=== PATIENT | female | born 1950 | race Caucasian/White ===

== ENCOUNTER 2018-03-01 10:32 | Emergency (ER) | payer OTHER, MEDICARE, BC ==
[2018-03-01 10:52] VITALS: BP 169/68
[2018-03-01] MEDS ORDERED: Ondansetron 4 MG Tab.DIS PO ONE (11:40)
[2018-03-01] MEDS ORDERED: Acetaminophen 325 MG Tab PO ONE (11:40)
--- NOTE | 2018-03-01 11:42 | EDM.PDOC ---
ED HPI GENERAL MEDICAL PROBLEM - General Chief Complaint: Head Injury Stated Complaint: HEAD INJURY/DIZZY Time Seen by Provider: 03/01/18 11:29 Source of Information: Reports: Patient History Limitations: Reports: No Limitations - History of Present Illness INITIAL COMMENTS - FREE TEXT/NARRATIVE: Patient is 67-year-old female presents ED complaining of right-sided head pain and some mild dizziness. Patient states at work a 3 pound piece of plywood fell on the patient's right side of her head from a short distance. Approximately 12 inches. This was located on a cart she was restocking from. It was the flat portion of the plywood that hit her on the head. 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 Since then she's had a headache localized to the right side of her head. She's had episodes of dizziness with standing also complains of some mild nausea. She denies any midline cervical neck pain, vision changes, weakness or numbness or tingling to extremities, difficulty walking, back pain, CP, SOB, or any additional complaints. Right Head Pain Score (Numeric/FACES): 5 - Related Data Allergies Allergy/AdvReac Type Severity Reaction Status Date / Time lacquer Allergy Anaphylactic Uncoded 03/01/18 10:46 Shock Home Meds: Home Meds Levothyroxine [Synthroid] 50 mcg PO DAILY 11/02/14 [History] Aspirin [Ecotrin] 325 mg PO DAILY #30 tab.ec 08/29/15 [Rx] Metoprolol Succinate [Toprol XL] 25 mg PO DAILY 03/01/18 [History] Past Medical History Cardiovascular History: Reports: Hypertension Endocrine/Metabolic History: Reports: Hypothyroidism - Past Surgical History HEENT Surgical History: Reports: Tonsillectomy GI Surgical History: Reports: Other (See Below) Other GI Surgeries/Procedures: lapraoscopy Female Surgical History: Reports: Hysterectomy Social & Family History - Tobacco Use Smoking Status *Q: Never Smoker Second Hand Smoke Exposure: Yes - Caffeine Use Caffeine Use: Reports: Coffee, Soda, Tea - Alcohol Use Days Per Week of Alcohol Use: 0 - Recreational Drug Use Recreational Drug Use: No ED ROS GENERAL - Review of Systems Review Of Systems: ROS reveals no pertinent complaints other than HPI. ED EXAM, HEAD INJURY - Physical Exam Exam: See Below Exam Limited By: No Limitations General Appearance: Alert, WD/WN, No Apparent Distress Head: Scalp Swelling, Scalp Hematoma, Scalp Tenderness, Other (Small hematoma to the right side of the head with increasing pain with palpation. No bruising, abrasion, bony abnormalities present.). No: Scalp Lacerations, Scalp Abrasions , Scalp Ecchymosis, Stein's Sign, Facial Abrasions, Facial Ecchymosis, Facial Lacerations, Facial Swelling, Sinus Tenderness, Facial Tenderness, Raccoon Eyes Nexus Criteria: No: Posterior, Midline Cervical Tenderness, Evidence of Intoxication, Altered Level of Consciousness, Focal Neurological Deficit, Painful Distraction Injuries Eyes: Bilateral Eye: EOMI, Nystagmus Ears: Normal External Exam, Normal Canal, Hearing Grossly Normal, Normal TMs Nose: Normal Inspection Throat/Mouth: Normal Inspection, Normal Oropharynx, Normal Voice, No Airway Compromise. No: Uvular Deviation Neck: Non-Tender, Full Range of Motion, Normal Alignment, Normal Inspection, Tenderness (Minimal discomfort on the right lateral aspect of the neck with palpation. No decreased range of motion noted.). No: Muscle Spasm, Paraspinous Muscle Tender, Spinous Processes Tender, Stiff Neck, Tender Midline Respiratory: No Respiratory Distress, Lungs Clear, Normal Breath Sounds, No Accessory Muscle Use, Chest Non-Tender Cardiovascular: Normal Peripheral Pulses, Regular Rate, Rhythm Back Exam: Normal Inspection. No: Paraspinal Tenderness, Vertebral Tenderness Extremities: Normal Inspection, Non-Tender Neurologic: pretzel packer II-XII nml As Tested, No Motor/Sensory Deficits, Alert, Normal Mood/Affect, Oriented x 3, Other (Cerebellar function intact: Finger to nose, rapid alternating movements, and [id number]. No weakness discrepancy as to the upper and lower extremity is.) Skin: Normal Color, Warm/Dry Course - Vital Signs Last Recorded V/S: Last Vital Signs Temp 98.0 F 03/01/18 10:48 Pulse 65 03/01/18 10:48 Resp 16 03/01/18 10:48 BP 169/68 H 03/01/18 10:48 Pulse Ox 98 03/01/18 10:48 - Orders/Labs/Meds Orders: Active Orders 24 hr Category Date Time Status EKG 12 Lead [EKG Documentation Completion] [RC] STAT Care 03/01/18 11:41 Active Meds: Medications Discontinued Medications Generic Name Dose Route Start Last Admin Trade Name Freq PRN Reason Stop Dose Admin Acetaminophen 650 mg 03/01/18 11:40 03/01/18 11:54 Tylenol PO 03/01/18 11:41 650 mg NOW ONE Administration Ondansetron HCl 4 mg 03/01/18 11:40 03/01/18 11:54 Zofran Odt PO 03/01/18 11:41 4 mg ONETIME ONE Administration - Re-Assessments/Exams Free Text/Narrative Re-Assessment/Exam: Ordered CT of the head and also EKG. Head CT did not reveal any acute findings. Final interpretation is pending. Reviewed with Dr. Choudhary. EKG sinus rhythm at rate of [address] changes noted. Patient received Tylenol and Zofran with improvements to symptoms. 03/01/18 13:18 CT the head impression: Mild senescent change. No acute findings noted. Will discharge patient home with instructions as documented. Departure - Departure Time of Disposition: 13:18 Disposition: Home, Self-Care 01 Condition: Good Clinical Impression: Concussion with no loss of consciousness Contusion of head Qualifiers: Encounter type: initial encounter Contusion of head detail: scalp Qualified Code(s): S00.03XA - Contusion of scalp, initial encounter - Discharge Information Instructions: Head Injury, Adult, Post-Concussion Syndrome, [id number], Contusion, [id number], Hematoma, [id number] Referrals: Venkat Mariee MD [Primary Care Provider] - Forms: ED Department Discharge, ED Return to Work/School Form Additional Instructions: Please follow instructions for concussion. Monitor for any new or worsening symptoms. May utilize Tylenol and/or ibuprofen in alternating fashion for discomfort. Push the fluids. Ensure adequate rest. Follow-up with PCP in up this week for reevaluation as needed. Return to the ED if you develop any new or worsening symptoms. - My Orders Last 24 Hours: My Active Orders 03/01/18 11:41 EKG 12 Lead [EKG Documentation Completion] [RC] STAT - Assessment/Plan Last 24 Hours: My Active Orders 03/01/18 11:41 EKG 12 Lead [EKG Documentation Completion] [RC] STAT
--- NOTE | 2018-03-01 13:04 | CT ---
Head CT Technique: Multiple axial sections through the brain were obtained. Intravenous contrast was not utilized. Comparison: No previous intracranial imaging is available. Findings: Ventricles along with basal cisterns and sulci over the convexities are mildly prominent. 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 Minimal diminished density is noted within portions of the periventricular and subcortical white matter which is compatible with small vessel ischemic demyelination change. No evidence of intracranial hemorrhage. No midline shift or mass effect is seen. Bone window settings were reviewed which shows no acute calvarial abnormality. Visualized sinuses are clear. Mild atherosclerotic calcification is seen within the carotid siphon. Impression: 1. Mild senescent change. No acute intracranial abnormality is identified. Diagnostic code #2
== END 2018-03-01 13:30 | disposition home or self-care (01) ==
LOC: JD.ED 10:32
DX: S06.0X0A Concussion without loss of consciousness, initial encounter (principal); I10 Essential (primary) hypertension; E03.9 Hypothyroidism, unspecified; Y99.0 Civilian activity done for income or pay; W20.8XXA Other cause of strike by thrown, projected or falling object, initial encounter; Z79.82 Long term (current) use of aspirin; Z79.899 Other long term (current) drug therapy; Z88.8 Allergy status to other drugs, medicaments and biological substances
CPT/HCPCS: 70450; 93005; 99284; A9270; 99283

== ENCOUNTER 2019-01-25 14:00 | Emergency (ER) | payer BC, MEDICARE ==
[2019-01-25] MEDS ORDERED: Ketorolac 30 MG/ML SDV IM ONE (15:04)
--- NOTE | 2019-01-25 15:08 | CR ---
Chest: Two views of the chest were obtained. Comparison: Prior chest x-ray of 08/28/15. Heart size is normal. Tortuous thoracic aorta is seen. Lungs are clear with no acute parenchymal change. Minimal degenerative spurring is scattered within the spine. Impression: 1. Nothing acute is seen on two-view chest x-ray. Diagnostic code #2
[2019-01-25 15:53] VITALS: BP 140/67
--- NOTE | 2019-01-25 16:00 | EDM.PDOC ---
ED HPI GENERAL MEDICAL PROBLEM - General Chief Complaint: Chest Pain Stated Complaint: CHEST PAIN FROM CHEST TO RIGHT ARM/HIGH BLOOD PRES Time Seen by Provider: 01/25/19 14:27 Source of Information: Reports: Patient, RN Notes Reviewed History Limitations: Reports: No Limitations - History of Present Illness INITIAL COMMENTS - FREE TEXT/NARRATIVE: Patient is a 68 year old female who presents to the ED for the evaluation of right shoulder pain with radiation to her left chest. She states that she tried to go to the walk-in clinic but they deferred her to the ED for evaluation. Patient states that she woke up this morning and had pain in her right shoulder. Over the subsequent attending. She states that she was not nauseous in the a.m., but did have some nausea this afternoon. She states that moving the arm in any way aggravates this pain. The patient states that she also aggravates this when she takes a deep breath. She states that she's never felt this type of pain before. He notes that she has a dry cough normally. She notes this pain to be sharp, stabbing, pressure-like and constant in nature. 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 She states that she does not have a history of anxiety nor is she is smoker. He states that her mother had some valve issues with her heart and grandmother had a heart attack. She states that she does not have nausea vomiting or diarrhea at this time, but does have some slight shortness of breath with episodes plus chest pain. Right Upper Posterior Back Pain Score (Numeric/FACES): 7 - Related Data Allergies Allergy/AdvReac Type Severity Reaction Status Date / Time lacquer Allergy Anaphylactic Uncoded 03/01/18 10:46 Shock Home Meds: Home Meds Levothyroxine [Synthroid] 50 mcg PO DAILY 11/02/14 [History] Aspirin [Ecotrin] 325 mg PO DAILY #30 tab.ec 08/29/15 [Rx] Metoprolol Succinate [Toprol XL] 25 mg PO DAILY 03/01/18 [History] Past Medical History HEENT History: Reports: Impaired Vision Cardiovascular History: Reports: Hypertension Endocrine/Metabolic History: Reports: Hypothyroidism - Past Surgical History HEENT Surgical History: Reports: Tonsillectomy GI Surgical History: Reports: Other (See Below) Other GI Surgeries/Procedures: lapraoscopy Female Surgical History: Reports: Hysterectomy Social & Family History - Tobacco Use Smoking Status *Q: Never Smoker - Caffeine Use Caffeine Use: Reports: Coffee - Recreational Drug Use Recreational Drug Use: No Review of Systems - Review of Systems Review Of Systems: See Below Constitutional: Denies: Chills, Fever Eyes: Reports: No Symptoms Ears: Reports: No Symptoms Nose: Reports: No Symptoms Mouth/Throat: Reports: No Symptoms Respiratory: Reports: Shortness of Breath, Cough. Denies: Wheezing, Sputum Cardiovascular: Reports: Chest Pain. Denies: Edema GI/Abdominal: Reports: No Symptoms Genitourinary: Reports: No Symptoms Musculoskeletal: Reports: Shoulder Pain (right shoulder/blade), Joint Pain ( right shoulder blade). Denies: Neck Pain, Hand Pain Skin: Reports: No Symptoms Neurological: Reports: No Symptoms Psychiatric: Reports: No Symptoms ED EXAM, GENERAL - Physical Exam Exam: See Below Exam Limited By: No Limitations General Appearance: Alert, WD/WN, No Apparent Distress Ears: Normal External Exam Nose: Normal Inspection Throat/Mouth: Normal Inspection, Normal Oropharynx, No Airway Compromise Head: Atraumatic, Normocephalic Neck: Normal Inspection Respiratory/Chest: No Respiratory Distress, Lungs Clear, Normal Breath Sounds, No Accessory Muscle Use, Chest Non-Tender Cardiovascular: Normal Peripheral Pulses, Regular Rate, Rhythm, No Murmur GI/Abdominal: Normal Bowel Sounds, Soft, Non-Tender, No Distention Back Exam: Normal Inspection Extremities: Normal Inspection, Normal Range of Motion (pt has normal ROM, but pain in mid back, around rib head 3-4.), Normal Capillary Refill. No: Joint Swelling, Arm Pain Neurological: Alert, Oriented, Normal Cognition, No Motor/Sensory Deficits Psychiatric: Normal Affect, Normal Mood Skin Exam: Warm, Dry, Intact, Normal Color, No Rash EKG INTERPRETATION EKG Date: 01/25/19 Time: 14:07 Rhythm: NSR Rate (Beats/Min): 72 [place]: Normal P-Wave: Present QRS: Normal ST-T: Normal QT: Normal EKG Interpretation Comments: Reviewed with Dr. Li Course - Vital Signs Last Recorded V/S: Last Vital Signs Temp 98.2 F 01/25/19 14:10 Pulse 68 01/25/19 15:52 Resp 18 01/25/19 15:52 BP 140/67 01/25/19 15:52 Pulse Ox 97 01/25/19 15:52 - Orders/Labs/Meds Orders: Active Orders 24 hr Category Date Time Status EKG Documentation Completion [RC] STAT Care 01/25/19 14:29 Active Labs: Laboratory Tests 01/25/19 01/25/19 01/25/19 Range/Units 14:43 14:43 14:43 WBC 4.84 (3.98-10.04) K/mm3 RBC 4.01 (3.98-5.22) M/mm3 Hgb 12.2 (11.2-15.7) gm/L Hct 37.4 (34.1-44.9) % MCV 93.3 (79.4-94.8) fl MCH 30.4 (25.6-32.2) pg MCHC 32.6 (32.2-35.5) g/dl RDW Std Deviation 42.9 (36.4-46.3) fL Plt Count 195 (182-369) K/mm3 MPV 9.7 (9.4-12.3) fl Neutrophils % (Manual) 76 H (40-60) % Band Neutrophils % 0 (0-10) % Lymphocytes % (Manual) 19 L (20-40) % Atypical Lymphs % 0 % Monocytes % (Manual) 4 (2-10) % Eosinophils % (Manual) 1 (0.7-5.8) % Basophils % (Manual) 0 L (0.1-1.2) Platelet Estimate Adequate RBC Morph Comment Normal PT 10.5 (9.5-12.1) SECONDS INR 0.96 APTT 27 (24-31) SECONDS D-Dimer, Quantitative 0.79 H (0.19-0.50) mg/L Sodium 140 (136-145) mEq/L Potassium 4.0 (3.5-5.1) mEq/L Chloride 103 (98-107) mEq/L Carbon Dioxide 30 (21-32) mEq/L Anion Gap 11.0 (5-15) BUN 22 H (7-18) mg/dL Creatinine 1.2 H (0.55-1.02) mg/dL Est Cr Clr Drug Dosing 34.50 mL/min Estimated GFR (MDRD) 44 (>60) mL/min BUN/Creatinine Ratio 18.3 H (14-18) Glucose 102 (80-115) mg/dL Calcium 9.3 (8.5-10.1) mg/dL Total Bilirubin 0.3 (0.2-1.0) mg/dL AST 17 (15-37) U/L ALT 24 (14-59) U/L Alkaline Phosphatase 87 (46-116) U/L Troponin I < 0.017 (0.00-0.056) ng/mL NT-Pro-B Natriuret Pep (0-125) pg/mL Total Protein 7.5 (6.4-8.2) g/dl Albumin 3.8 (3.4-5.0) g/dl Globulin 3.7 gm/dL Albumin/Globulin Ratio 1.0 (1-2) 01/25/19 Range/Units 14:43 WBC (3.98-10.04) K/mm3 RBC (3.98-5.22) M/mm3 Hgb (11.2-15.7) gm/L Hct (34.1-44.9) % MCV (79.4-94.8) fl MCH (25.6-32.2) pg MCHC (32.2-35.5) g/dl RDW Std Deviation (36.4-46.3) fL Plt Count (182-369) K/mm3 MPV (9.4-12.3) fl Neutrophils % (Manual) (40-60) % Band Neutrophils % (0-10) % Lymphocytes % (Manual) (20-40) % Atypical Lymphs % % Monocytes % (Manual) (2-10) % Eosinophils % (Manual) (0.7-5.8) % Basophils % (Manual) (0.1-1.2) Platelet Estimate RBC Morph Comment PT (9.5-12.1) SECONDS INR APTT (24-31) SECONDS D-Dimer, Quantitative (0.19-0.50) mg/L Sodium (136-145) mEq/L Potassium (3.5-5.1) mEq/L Chloride (98-107) mEq/L Carbon Dioxide (21-32) mEq/L Anion Gap (5-15) BUN (7-18) mg/dL Creatinine (0.55-1.02) mg/dL Est Cr Clr Drug Dosing mL/min Estimated GFR (MDRD) (>60) mL/min BUN/Creatinine Ratio (14-18) Glucose (80-115) mg/dL Calcium (8.5-10.1) mg/dL Total Bilirubin (0.2-1.0) mg/dL AST (15-37) U/L ALT (14-59) U/L Alkaline Phosphatase (46-116) U/L Troponin I (0.00-0.056) ng/mL NT-Pro-B Natriuret Pep 87 (0-125) pg/mL Total Protein (6.4-8.2) g/dl Albumin (3.4-5.0) g/dl Globulin gm/dL Albumin/Globulin Ratio (1-2) Meds: Medications Discontinued Medications Generic Name Dose Route Start Last Admin Trade Name Jose PRN Reason Stop Dose Admin Ketorolac Tromethamine 30 mg 01/25/19 15:04 01/25/19 15:49 Toradol IM 01/25/19 15:05 30 mg ONETIME ONE Administration - Re-Assessments/Exams Free Text/Narrative Re-Assessment/Exam: 01/25/19 14:45 Patient presents to the ED for right shoulder pain that radiates to the left chest. I did order cardiac workup to include CBC, CMP, troponin, d-dimer, PT/ PTT/INR and BNP. I am suspicious that her pain is musculoskeletal in nature and may be she did not sublux a rib head. He did order 30 mg IM Toradol for pain relief to see if this does help. I did briefly explain management of rib head pain relief to her as well. 01/25/19 16:11 Patient's labs have returned and are essentially within normal limits, however her d-dimer was elevated at 0.79. This was discussed with Dr. Li and it is felt to be age-related and non-worrisome at this time. Patient will be discharged home with general recommendations for musculoskeletal pain. Departure - Departure Time of Disposition: 16:12 Disposition: Home, Self-Care 01 Condition: Fair Clinical Impression: Right shoulder pain Qualifiers: Chronicity: acute Qualified Code(s): M25.511 - Pain in right shoulder - Discharge Information *PRESCRIPTION DRUG MONITORING PROGRAM REVIEWED*: No *COPY OF PRESCRIPTION DRUG MONITORING REPORT IN PATIENT EARLINE: No Instructions: Cryotherapy, [id number]-[id number], Nonspecific Chest Pain, [id number] Referrals: PCP,None [Ordering Only Provider] - Forms: ED Department Discharge Additional Instructions: You have then evaluated in the ED today for your right shoulder pain. Your workup in the ER today did not demonstrate any acute cardiac abnormalities. Your pain is likely musculoskeletal in nature, recommend that you seek chiropractic treatment to see if this doesn't provide some pain relief. You may take 500 mg Tylenol / 600 mg ibuprofen every 6 as needed for general pain relief. If you should develop increased shortness of breath, tachycardia, or a worsening cough, this would be cause for concern and you should return for re- evaluation. Please return to the ED if her symptoms change or worsen. - My Orders Last 24 Hours: My Active Orders 01/25/19 14:29 EKG Documentation Completion [RC] STAT - Assessment/Plan Last 24 Hours: My Active Orders 01/25/19 14:29 EKG Documentation Completion [RC] STAT
== END 2019-01-25 16:30 | disposition home or self-care (01) ==
LOC: JD.ED 14:00
DX: M25.511 Pain in right shoulder (principal); M54.6 Pain in thoracic spine; I10 Essential (primary) hypertension; E03.9 Hypothyroidism, unspecified; Z98.890 Other specified postprocedural states; Z79.82 Long term (current) use of aspirin; Z79.899 Other long term (current) drug therapy; Z90.710 Acquired absence of both cervix and uterus; Z88.8 Allergy status to other drugs, medicaments and biological substances
CPT/HCPCS: 36415; 71046; 80053; 83880; 84484; 85007; 85027; 85379; 85610; 85730; 93005; 96372; 99285; J1885; 93010; 99284

== ENCOUNTER 2019-05-09 11:42 | Emergency (ER) | payer MEDICARE, BC ==
[2019-05-09 11:56] VITALS: BP 175/70
[2019-05-09] MEDS: Sodium Chloride 0.9% 10 ML Syringe FLUSH PRN ×2 (12:10→14:55)
--- NOTE | 2019-05-09 12:45 | CT ---
Head CT Technique: Multiple axial sections through the brain were obtained. Intravenous contrast was not utilized. Comparison: Prior head CT study of . Findings: Ventricles along with basal cisterns and sulci over the convexities are mildly prominent. Very minimal areas of diminished density noted within the periventricular and subcortical white matter compatible with minimal small vessel ischemic demyelination change. Old lacunar infarcts are seen within the basal ganglia. No other abnormal parenchymal densities are seen. No evidence of intracranial hemorrhage. No midline shift or mass effect is seen. Bone window settings were reviewed which show atherosclerotic calcification within the carotid siphon. Visualized sinuses are clear. No acute calvarial abnormality is seen. Impression: 1. Mild senescent change. Nothing acute is appreciated on noncontrast head CT exam. Diagnostic code #2
[2019-05-09] MEDS ORDERED: Prochlorperazine 10 MG/2 ML SDV IVPUSH ONE (14:32)
[2019-05-09] MEDS ORDERED: diphenhydrAMINE 50 MG/ML SDV IVPUSH ONE (14:32)
[2019-05-09] MEDS ORDERED: Ketorolac 30 MG/ML SDV IVPUSH ONE (14:32)
[2019-05-09] MEDS ORDERED: Iohexol 350 MG/ML 75 ML Bottle IVPUSH ONE (14:37)
[2019-05-09] MEDS ORDERED: Sodium Chloride 0.9% 10 ML Syringe FLUSH ONE (14:37)
[2019-05-09] MEDS ORDERED: Sodium Chloride 0.9% 100 ML IV SCH (14:45)
--- NOTE | 2019-05-09 15:34 | CT ---
CT angiogram of brain Technique: Multiple axial sections of the brain were obtained. Intravenous contrast was utilized. Intravenous contrast given during the arterial phase. Findings: Right vertebral artery is dominant over the left side. Both vertebral arteries are patent into the basilar artery. Posterior cerebral arteries are patent. No occlusion or definite stenosis is seen. Distal internal carotid arteries are patent. Middle cerebral arteries and anterior cerebral arteries are patent. No focal stenosis or occlusion is seen. No discrete aneurysm is identified. Impression: 1. No abnormality is identified on CT angiogram study of the brain. Diagnostic code #1
--- NOTE | 2019-05-09 15:47 | EDM.PDOC ---
ED HPI GENERAL MEDICAL PROBLEM - General Chief Complaint: Neuro Symptoms/Deficits Stated Complaint: DIZZY FEELS LIKE SHE IS GOING TO PASS OUT Time Seen by Provider: 05/09/19 11:53 Source of Information: Reports: Patient, Family History Limitations: Reports: No Limitations - History of Present Illness INITIAL COMMENTS - FREE TEXT/NARRATIVE: The patient presents with dizziness. This all started at 10am. Her last time known well was 10am. She says she is off balance and at times it feels like she is going to pass out. She has a headache. She has some nausea but no vomiting. She has no fever, chills, cough, ear pain, tinnitus, chest pain, shortness of breath, abdominal pain, diarrhea or dysuria. She also has some numbness in her face. She was at the [employer] when this started. She has never had this happen before. Onset: Sudden Duration: Hour(s): (10am) Severity: Moderate Improves with: Reports: None Worsens with: Reports: None Associated Symptoms: Reports: Headaches, Nausea/Vomiting. Denies: Chest Pain, Cough, Fever/Chills, Shortness of Breath Headache Pain Score (Numeric/FACES): 5 - Related Data Allergies Allergy/AdvReac Type Severity Reaction Status Date / Time lacquer Allergy Anaphylactic Uncoded 03/01/18 10:46 Shock Home Meds: Home Meds Levothyroxine [Synthroid] 50 mcg PO ACBREAKFAST 05/09/19 [History] Lisinopril/Hydrochlorothiazide [Lisinopril-Hctz 20-12.5 mg Tab] 1 tab PO BID 09/17 [History] Meclizine [Antivert] 25 mg PO Q6H PRN #30 tab 05/09/19 [Rx] Past Medical History HEENT History: Reports: Impaired Vision Cardiovascular History: Reports: Hypertension Endocrine/Metabolic History: Reports: Hypothyroidism - Past Surgical History HEENT Surgical History: Reports: Tonsillectomy GI Surgical History: Reports: Other (See Below) Other GI Surgeries/Procedures: lapraoscopy Female Surgical History: Reports: Hysterectomy Social & Family History - Tobacco Use Smoking Status *Q: Never Smoker Second Hand Smoke Exposure: No - Caffeine Use Caffeine Use: Reports: Coffee ED ROS GENERAL - Review of Systems Review Of Systems: See Below Constitutional: Reports: No Symptoms HEENT: Reports: No Symptoms Respiratory: Reports: No Symptoms Cardiovascular: Reports: No Symptoms Endocrine: Reports: No Symptoms GI/Abdominal: Reports: Nausea. Denies: Abdominal Pain, Vomiting : Reports: No Symptoms Musculoskeletal: Reports: No Symptoms Skin: Reports: No Symptoms Neurological: Reports: Dizziness, Headache ED EXAM, NEURO - Physical Exam Exam: See Below Exam Limited By: No Limitations General Appearance: Alert, No Apparent Distress Ears: Normal External Exam Nose: Normal Inspection Throat/Mouth: Normal Inspection Head Exam: Atraumatic, Normocephalic Neck: Normal Inspection, Supple, Non-Tender Respiratory/Chest: No Respiratory Distress, Lungs Clear, Normal Breath Sounds Cardiovascular: Regular Rate, Rhythm, No Edema, No Murmur GI/Abdominal: Soft, Non-Tender, No Organomegaly, No Mass Neurological: Alert, No Motor/Sensory Deficits, Oriented x 3 EKG INTERPRETATION EKG Date: 05/09/19 Time: 12:03 Rhythm: NSR Rate (Beats/Min): 67 [place]: Normal P-Wave: Present QRS: Normal ST-T: Normal QT: Normal Course - Vital Signs Last Recorded V/S: Last Vital Signs Temp 98.0 F 05/09/19 11:53 Pulse 71 05/09/19 11:53 Resp 20 05/09/19 11:53 BP 175/70 H 05/09/19 11:53 Pulse Ox 100 05/09/19 11:53 - Orders/Labs/Meds Orders: Active Orders 24 hr Category Date Time Status Cardiac Monitoring [RC] . DIRECTED Care 05/09/19 11:57 Active EKG Documentation Completion [RC] STAT Care 05/09/19 11:58 Active Peripheral IV Care [RC] . DIRECTED Care 05/09/19 11:58 Active Sodium Chloride 0.9% [Normal Saline] 100 ml Med 05/09/19 14:45 Active IV ASDIRECTED Sodium Chloride 0.9% [Saline Flush] Med 05/09/19 11:57 Active 10 ml FLUSH ASDIRECTED PRN Peripheral IV Insertion Adult [OM.PC] Stat Oth 05/09/19 11:57 Ordered Medication Orders Sodium Chloride (Normal Saline) 100 mls @ 60 mls/hr IV ASDIRECTED PRIMITIVO Last Admin: 05/09/19 14:55 Dose: 60 mls/hr Sodium Chloride (Saline Flush) 10 ml FLUSH ASDIRECTED PRN PRN Reason: Keep Vein Open Last Admin: 05/09/19 14:55 Dose: 10 ml Admin: 05/09/19 12:10 Dose: 10 ml Labs: Laboratory Tests 05/09/19 05/09/19 05/09/19 Range/Units 11:56 12:05 12:05 WBC 3.45 L (3.98-10.04) K/mm3 RBC 4.07 (3.98-5.22) M/mm3 Hgb 12.4 (11.2-15.7) gm/L Hct 37.6 (34.1-44.9) % MCV 92.4 (79.4-94.8) fl MCH 30.5 (25.6-32.2) pg MCHC 33.0 (32.2-35.5) g/dl RDW Std Deviation 40.6 (36.4-46.3) fL Plt Count 163 L (182-369) K/mm3 MPV 9.7 (9.4-12.3) fl Neut % (Auto) 55.6 (34.0-71.1) % Lymph % (Auto) 29.0 (19.3-51.7) % Starr % (Auto) 10.4 (4.7-12.5) % Eos % (Auto) 3.5 (0.7-5.8) Baso % (Auto) 1.2 (0.1-1.2) % Neut # (Auto) 1.92 (1.56-6.13) K/mm3 Lymph # (Auto) 1.00 L (1.18-3.74) K/mm3 Starr # (Auto) 0.36 (0.24-0.36) K/mm3 Eos # (Auto) 0.12 (0.04-0.36) K/mm3 Baso # (Auto) 0.04 (0.01-0.08) K/mm3 PT 10.2 (9.5-12.1) SECONDS INR 0.93 APTT 27 (24-31) SECONDS Sodium (136-145) mEq/L Potassium (3.5-5.1) mEq/L Chloride (98-107) mEq/L Carbon Dioxide (21-32) mEq/L Anion Gap (5-15) BUN (7-18) mg/dL Creatinine (0.55-1.02) mg/dL Est Cr Clr Drug Dosing Estimated GFR (MDRD) (>60) mL/min BUN/Creatinine Ratio (14-18) Glucose (80-115) mg/dL POC Glucose 160 H (80-115) mg/dL Calcium (8.5-10.1) mg/dL Total Bilirubin (0.2-1.0) mg/dL AST (15-37) U/L ALT (14-59) U/L Alkaline Phosphatase (46-116) U/L Troponin I (0.00-0.056) ng/mL Total Protein (6.4-8.2) g/dl Albumin (3.4-5.0) g/dl Globulin gm/dL Albumin/Globulin Ratio (1-2) 05/09/19 Range/Units 12:05 WBC (3.98-10.04) K/mm3 RBC (3.98-5.22) M/mm3 Hgb (11.2-15.7) gm/L Hct (34.1-44.9) % MCV (79.4-94.8) fl MCH (25.6-32.2) pg MCHC (32.2-35.5) g/dl RDW Std Deviation (36.4-46.3) fL Plt Count (182-369) K/mm3 MPV (9.4-12.3) fl Neut % (Auto) (34.0-71.1) % Lymph % (Auto) (19.3-51.7) % Starr % (Auto) (4.7-12.5) % Eos % (Auto) (0.7-5.8) Baso % (Auto) (0.1-1.2) % Neut # (Auto) (1.56-6.13) K/mm3 Lymph # (Auto) (1.18-3.74) K/mm3 Starr # (Auto) (0.24-0.36) K/mm3 Eos # (Auto) (0.04-0.36) K/mm3 Baso # (Auto) (0.01-0.08) K/mm3 PT (9.5-12.1) SECONDS INR APTT (24-31) SECONDS Sodium 140 (136-145) mEq/L Potassium 4.0 (3.5-5.1) mEq/L Chloride 103 (98-107) mEq/L Carbon Dioxide 28 (21-32) mEq/L Anion Gap 13.0 (5-15) BUN 25 H (7-18) mg/dL Creatinine 1.0 (0.55-1.02) mg/dL Est Cr Clr Drug Dosing TNP Estimated GFR (MDRD) 55 (>60) mL/min BUN/Creatinine Ratio 25.0 H (14-18) Glucose 158 H (80-115) mg/dL POC Glucose (80-115) mg/dL Calcium 9.0 (8.5-10.1) mg/dL Total Bilirubin 0.4 (0.2-1.0) mg/dL AST 22 (15-37) U/L ALT 33 (14-59) U/L Alkaline Phosphatase 88 (46-116) U/L Troponin I < 0.017 (0.00-0.056) ng/mL Total Protein 7.3 (6.4-8.2) g/dl Albumin 3.9 (3.4-5.0) g/dl Globulin 3.4 gm/dL Albumin/Globulin Ratio 1.2 (1-2) Meds: Medications Generic Name Dose Route Start Last Admin Trade Name Freq PRN Reason Stop Dose Admin Sodium Chloride 100 mls @ 60 mls/hr 05/09/19 14:45 05/09/19 14:55 Normal Saline IV 60 mls/hr ASDIRECTED PRIMITIVO Administration Sodium Chloride 10 ml 05/09/19 11:57 05/09/19 14:55 Saline Flush FLUSH 10 ml ASDIRECTED PRN Administration Keep Vein Open Discontinued Medications Generic Name Dose Route Start Last Admin Trade Name Freq PRN Reason Stop Dose Admin Diphenhydramine HCl 50 mg 05/09/19 14:32 05/09/19 15:06 Benadryl IVPUSH 05/09/19 14:33 50 mg ONETIME ONE Administration Iohexol 75 ml 05/09/19 14:37 05/09/19 14:54 Omnipaque IVPUSH 05/09/19 14:38 75 ml ONETIME ONE Administration Ketorolac Tromethamine 30 mg 05/09/19 14:32 05/09/19 15:05 Toradol IVPUSH 05/09/19 14:33 30 mg ONETIME ONE Administration Prochlorperazine Edisylate 10 mg 05/09/19 14:32 05/09/19 15:07 Compazine IVPUSH 05/09/19 14:33 10 mg ONETIME ONE Administration Sodium Chloride 10 ml 05/09/19 14:37 05/09/19 15:08 Saline Flush FLUSH 05/09/19 14:38 10 ml ONETIME ONE Administration - Re-Assessments/Exams Free Text/Narrative Re-Assessment/Exam: 05/09/19 15:43 A stroke alert was called. Her last time known well was 10am. I ordered an IV saline lock, CT of her head, EKG and labs. Her EKG shows a NSR with no acute changes. Her CT shows nothing acute. Her WBC was a little low at 3.45. Her PT and PTT look good. Her glucose was 160 at the bed side and 158 in her labs. Her troponin is negative. I ordered a CT of her head and it was negative. I ordered toradol 30mg IV, compazine 10mg IV, and benadryl 50mg IV. She has vertigo. I will get her on some antivert. Departure - Departure Time of Disposition: 15:50 Disposition: Home, Self-Care 01 Condition: Good Clinical Impression: Vertigo - Discharge Information *PRESCRIPTION DRUG MONITORING PROGRAM REVIEWED*: No *COPY OF PRESCRIPTION DRUG MONITORING REPORT IN PATIENT EARLINE: No Prescriptions: Meclizine [Antivert] 25 mg PO Q6H PRN #30 tab PRN Reason: Dizziness Referrals: Venkat Mariee MD [Primary Care Provider] - Additional Instructions: Go home and rest. Drink plenty of fluids. Take the antivert every 6 hours as needed for dizziness. Please return if you are worse. - My Orders Last 24 Hours: My Active Orders 05/09/19 11:57 Cardiac Monitoring [RC] . DIRECTED Sodium Chloride 0.9% [Saline Flush] 10 ml FLUSH ASDIRECTED PRN Peripheral IV Insertion Adult [OM.PC] Stat 05/09/19 11:58 EKG Documentation Completion [RC] STAT Peripheral IV Care [RC] . DIRECTED 05/09/19 14:45 Sodium Chloride 0.9% [Normal Saline] 100 ml IV ASDIRECTED - Assessment/Plan Last 24 Hours: My Active Orders 05/09/19 11:57 Cardiac Monitoring [RC] . DIRECTED Sodium Chloride 0.9% [Saline Flush] 10 ml FLUSH ASDIRECTED PRN Peripheral IV Insertion Adult [OM.PC] Stat 05/09/19 11:58 EKG Documentation Completion [RC] STAT Peripheral IV Care [RC] . DIRECTED 05/09/19 14:45 Sodium Chloride 0.9% [Normal Saline] 100 ml IV ASDIRECTED
== END 2019-05-09 16:05 | disposition home or self-care (01) ==
LOC: JD.ED 11:42
DX: R42 Dizziness and giddiness (principal); I10 Essential (primary) hypertension; E03.9 Hypothyroidism, unspecified; Z79.899 Other long term (current) drug therapy; Z88.8 Allergy status to other drugs, medicaments and biological substances
CPT/HCPCS: 36415; 70450; 70496; 80053; 82962; 84484; 85025; 85610; 85730; 93005; 96374; 96375; 99284; J0780; J1200; J1885; J7030; Q9967

== ENCOUNTER 2019-11-02 05:03 | Emergency (ER) | payer MEDICARE, BC ==
[2019-11-02] MEDS ORDERED: Ondansetron 4 MG/2 ML SDV IVPUSH ONE (05:36)
[2019-11-02] MEDS ORDERED: Sodium Chloride 0.9% 1,000 ML IV SCH (05:45)
--- NOTE | 2019-11-02 05:45 | EDM.PDOC ---
<Harsha Li - Last Filed: 11/02/19 06:59> ED HPI GENERAL MEDICAL PROBLEM - General Chief Complaint: Gastrointestinal Problem Stated Complaint: BLOOD IN STOOL Time Seen by Provider: 11/02/19 05:13 Source of Information: Reports: Patient History Limitations: Reports: No Limitations - History of Present Illness INITIAL COMMENTS - FREE TEXT/NARRATIVE: Mrs. Barcenas is a very pleasant 69-year-old woman who states that she developed generalized abdominal pain and rectal pressure around 21:00 last night. She states that she knew that she was not constipated, because she had had a normal bowel movement earlier yesterday. She states that because of the rectal pressure , she attempted to go to the bathroom, and strained at the stool for about 5-10 minutes, without any output, however, later in the evening, she had 2 bowel movements. Neither were hard, in fact, the second bowel movement is somewhat watery. She then went to sleep. She woke at 4:00, still with the abdominal pain. She went to the bathroom and passed a clot of blood. She then returned to bed, but had to use the bathroom a second time this morning, passing a smaller clot. Since then, her abdominal pain has improved, but it still waxes and wanes. No recent fever. She has had some nausea on and off since last night, but no emesis. No urinary symptoms. No prior similar symptoms. The patient states that she underwent a colonoscopy in 2014, and that no abnormalities were found. The patient states that she has not been ill recently. No recent cough, dyspnea , chest pain, palpitations, recent weight gain or weight loss, recent joint aches, headaches, or rashes. The patient's PCP is Dr. Venkat Mariee. She has received an influenza vaccine this season. Abdomen Pain Score (Numeric/FACES): 6 - Related Data Allergies Allergy/AdvReac Type Severity Reaction Status Date / Time lacquer Allergy Unknown Anaphylactic Uncoded 11/02/19 05:19 Shock Home Meds: Home Meds Levothyroxine [Synthroid] 50 mcg PO ACBREAKFAST 05/09/19 [History] Lisinopril/Hydrochlorothiazide [Lisinopril-Hctz 20-12.5 mg Tab] 1 tab PO BID 09/17 [History] Ciprofloxacin HCl [Cipro] 500 mg PO BID #20 tablet 11/02/19 [Rx] Dicyclomine [Bentyl] 20 mg PO Q6H PRN #8 tablet 11/02/19 [Rx] Ketoconazole [Ketoconazole 2%] 1 applic TOP BID 11/02/19 [History] Pravastatin [Pravachol] 11/02/19 [History] metroNIDAZOLE [Flagyl] 500 mg PO Q8H #21 tab 11/02/19 [Rx] Past Medical History HEENT History: Reports: Impaired Vision Cardiovascular History: Reports: High Cholesterol, Hypertension [employer] History: Reports: Polycystic Ovaries Psychiatric History: Reports: Anxiety (untreated) Endocrine/Metabolic History: Reports: Hypothyroidism - Past Surgical History HEENT Surgical History: Reports: Tonsillectomy GI Surgical History: Reports: Appendectomy, Colonoscopy (2014). Denies: EGD Female Surgical History: Reports: Hysterectomy (complete), Other (See Below) (Exploratory laparoscopy 2 inability to get , finding polycystic ovaries) Social & Family History - Tobacco Use Smoking Status *Q: Never Smoker - Caffeine Use Caffeine Use: Reports: Coffee - Alcohol Use Alcohol Use History: Yes Alcohol Use Frequency: Socially - Recreational Drug Use Recreational Drug Use: No - Living Situation & Occupation Living situation: Reports: , with Spouse Occupation: Retired ED ROS GENERAL - Review of Systems Review Of Systems: Comprehensive ROS is negative, except as noted in HPI. ED EXAM, GI/ABD - Physical Exam Exam: See Below Exam Limited By: No Limitations General Appearance: Alert, WD/WN, Anxious Eyes: Bilateral: Normal Appearance, EOMI Ears: Normal External Exam, Hearing Grossly Normal Nose: Normal Inspection Throat/Mouth: Normal Inspection, Normal Lips, Normal Voice, No Airway Compromise Head: Atraumatic, Normocephalic Neck: Normal Inspection, Full Range of Motion Respiratory/Chest: No Respiratory Distress, Lungs Clear, Normal Breath Sounds, No Accessory Muscle Use Cardiovascular: Normal Peripheral Pulses, Regular Rate, Rhythm, No Edema, No Gallop, No JVD, No Murmur, No Rub GI/Abdominal Exam: Normal Bowel Sounds, Soft, Non-Tender (despite abdominal pain ), No Organomegaly, No Distention, No Abnormal Bruit, No Mass (Female) Exam: Deferred Rectal (Female) Exam: Normal Rectal Tone, Bloody Stool, Heme + Stool, Hemorrhoids (small, non-thrombosed, nontender) Back Exam: Normal Inspection, Full Range of Motion. No: CVA Tenderness (L), CVA Tenderness (R) Extremities: Normal Inspection, Normal Range of Motion, No Pedal Edema, Normal Capillary Refill Neurological: Alert, Oriented, Normal Cognition, No Motor/Sensory Deficits Psychiatric: Anxious Skin Exam: Warm, Dry, Intact, Normal Color, No Rash Course - Vital Signs Last Recorded V/S: Last Vital Signs Temp 36.9 C 11/02/19 05:16 Pulse 66 11/02/19 05:16 Resp 18 11/02/19 05:16 BP 140/76 11/02/19 05:16 Pulse Ox 100 11/02/19 05:16 Orthostatic Blood Pressure [ 131/75 Standing] Orthostatic Blood Pressure [ 140/76 Supine] - Orders/Labs/Meds Orders: Active Orders 24 hr Category Date Time Status Fecal Occult Blood Collection [RC] ASDIRECTED Care 11/02/19 05:36 Active PATIENT RETYPE [BBK] Routine Lab 11/02/19 08:43 Ordered UA W/MICROSCOPIC [URIN] Stat Lab 11/02/19 05:36 Ordered Sodium Chloride 0.9% [Normal Saline] 1,000 ml Med 11/02/19 05:45 Active IV ASDIRECTED Sodium Chloride 0.9% [Normal Saline] 100 ml Med 11/02/19 07:45 Active IV ASDIRECTED Medication Orders Sodium Chloride (Normal Saline) 1,000 mls @ 150 mls/hr IV ASDIRECTED PRIMITIVO Last Admin: 11/02/19 05:44 Dose: 150 mls/hr Sodium Chloride (Normal Saline) 100 mls @ 60 mls/hr IV ASDIRECTED PRIMITIVO Last Admin: 11/02/19 07:51 Dose: 60 mls/hr Labs: Laboratory Tests 11/02/19 11/02/19 11/02/19 Range/Units 06:00 06:00 06:00 WBC 5.98 (3.98-10.04) K/mm3 RBC 3.89 L (3.98-5.22) M/mm3 Hgb 11.9 (11.2-15.7) gm/dl Hct 35.6 (34.1-44.9) % MCV 91.5 (79.4-94.8) fl MCH 30.6 (25.6-32.2) pg MCHC 33.4 (32.2-35.5) g/dl RDW Std Deviation 41.6 (36.4-46.3) fL Plt Count 188 (182-369) K/mm3 MPV 9.6 (9.4-12.3) fl Neutrophils % (Manual) 75 H (40-60) % Band Neutrophils % 0 (0-10) % Lymphocytes % (Manual) 21 (20-40) % Atypical Lymphs % 0 % Monocytes % (Manual) 4 (2-10) % Eosinophils % (Manual) 0 L (0.7-5.8) % Basophils % (Manual) 0 L (0.1-1.2) Platelet Estimate Adequate RBC Morph Comment Normal Sodium 138 (136-145) mEq/L Potassium 4.0 (3.5-5.1) mEq/L Chloride 103 (98-107) mEq/L Carbon Dioxide 27 (21-32) mEq/L Anion Gap 12.0 (5-15) BUN 25 H (7-18) mg/dL Creatinine 1.2 H (0.55-1.02) mg/dL Est Cr Clr Drug Dosing TNP Estimated GFR (MDRD) 44 (>60) mL/min BUN/Creatinine Ratio 20.8 H (14-18) Glucose 122 H (83-115) mg/dL Calcium 8.8 (8.5-10.1) mg/dL Total Bilirubin 0.6 (0.2-1.0) mg/dL AST 24 (15-37) U/L ALT 34 (14-59) U/L Alkaline Phosphatase 78 (46-116) U/L C-Reactive Protein (<1.0) mg/dL Total Protein 7.3 (6.4-8.2) g/dl Albumin 3.9 (3.4-5.0) g/dl Globulin 3.4 gm/dL Albumin/Globulin Ratio 1.2 (1-2) Lipase 55 L (73-393) U/L Blood Type O POSITIVE Gel Antibody Screen Negative 11/02/19 Range/Units 06:00 WBC (3.98-10.04) K/mm3 RBC (3.98-5.22) M/mm3 Hgb (11.2-15.7) gm/dl Hct (34.1-44.9) % MCV (79.4-94.8) fl MCH (25.6-32.2) pg MCHC (32.2-35.5) g/dl RDW Std Deviation (36.4-46.3) fL Plt Count (182-369) K/mm3 MPV (9.4-12.3) fl Neutrophils % (Manual) (40-60) % Band Neutrophils % (0-10) % Lymphocytes % (Manual) (20-40) % Atypical Lymphs % % Monocytes % (Manual) (2-10) % Eosinophils % (Manual) (0.7-5.8) % Basophils % (Manual) (0.1-1.2) Platelet Estimate RBC Morph Comment Sodium (136-145) mEq/L Potassium (3.5-5.1) mEq/L Chloride (98-107) mEq/L Carbon Dioxide (21-32) mEq/L Anion Gap (5-15) BUN (7-18) mg/dL Creatinine (0.55-1.02) mg/dL Est Cr Clr Drug Dosing Estimated GFR (MDRD) (>60) mL/min BUN/Creatinine Ratio (14-18) Glucose (83-115) mg/dL Calcium (8.5-10.1) mg/dL Total Bilirubin (0.2-1.0) mg/dL AST (15-37) U/L ALT (14-59) U/L Alkaline Phosphatase (46-116) U/L C-Reactive Protein 0.5 (<1.0) mg/dL Total Protein (6.4-8.2) g/dl Albumin (3.4-5.0) g/dl Globulin gm/dL Albumin/Globulin Ratio (1-2) Lipase (73-393) U/L Blood Type Gel Antibody Screen Meds: Medications Generic Name Dose Route Start Last Admin Trade Name Freq PRN Reason Stop Dose Admin Sodium Chloride 1,000 mls @ 150 mls/hr 11/02/19 05:45 11/02/19 05:44 Normal Saline IV 150 mls/hr ASDIRECTED PRIMITIVO Administration Sodium Chloride 100 mls @ 60 mls/hr 11/02/19 07:45 11/02/19 07:51 Normal Saline IV 60 mls/hr ASDIRECTED PRIMITIVO Administration Discontinued Medications Generic Name Dose Route Start Last Admin Trade Name Freq PRN Reason Stop Dose Admin Diatrizoate Meglum/Diatrizoate Sod 90 ml 11/02/19 07:33 11/02/19 07:51 Gastrografin 37% PO 11/02/19 07:34 90 ml ONETIME ONE Administration Dicyclomine HCl 20 mg 11/02/19 08:26 11/02/19 08:38 Bentyl PO 11/02/19 08:27 20 mg ONETIME ONE Administration Iopamidol 100 ml 11/02/19 07:33 11/02/19 07:51 Isovue-300 (61%) IVPUSH 11/02/19 07:34 100 ml ONETIME ONE Administration Ondansetron HCl 4 mg 11/02/19 05:36 11/02/19 05:44 Zofran IVPUSH 11/02/19 05:37 4 mg ONETIME ONE Administration Sodium Chloride 10 ml 11/02/19 07:33 11/02/19 07:51 Saline Flush FLUSH 11/02/19 07:34 10 ml ONETIME ONE Administration - Re-Assessments/Exams Free Text/Narrative Re-Assessment/Exam: 11/02/19 05:37 The patient states that she is continuing to have [id number] generalized abdominal pain. She has no significant tenderness on palpation, however, on rectal examination, her stool is bloody red and heme positive. I have therefore ordered blood work, a urinalysis, and a CT scan of her abdomen and pelvis with oral and IV contrast. The patient declined an offer for pain medication, but she will be treated with IV fluid and IV Zofran. 11/02/19 07:00 The patient's CBC is unremarkable. Her CMP is remarkable for a BUN/Cr mildly elevated at 25/1.2, and a blood glucose mildly elevated at 122, with the remainder of her CMP being unremarkable. Her lipase is within normal limits at 55. Her urinalysis and CT results are still pending. Case discussed with Dr. Sandoval, and care of the patient turned over to him at this time, for change of shift. Departure - Departure Disposition: Home, Self-Care 01 Clinical Impression: Nonspecific colitis Abdominal pain Qualifiers: Abdominal location: left lower quadrant Qualified Code(s): R10.32 - Left lower quadrant pain - Discharge Information Prescriptions: Ciprofloxacin HCl [Cipro] 500 mg PO BID #20 tablet Dicyclomine [Bentyl] 20 mg PO Q6H PRN #8 tablet PRN Reason: Abdominal cramps/diarrhea metroNIDAZOLE [Flagyl] 500 mg PO Q8H #21 tab Instructions: Colitis Referrals: Venkat Mariee MD [Primary Care Provider] - Forms: ED Department Discharge Additional Instructions: Evaluation the emergency room today in regards to development of diffuse abdominal pain more so on the left side than on the right side of the abdomen. The so she with development of passage of some bright red blood clots overnight. Intensive intestinal cramping at times. Lab tests don't reveal any obvious signs of bacterial infection CT scan of the abdomen revealed some inflammation of the descending colon on the left side compatible with a nonspecific colitis. This means bacteria infection may be the cause of the inflammation it can be viral as well. Diverticulitis could act like this as well but no active diverticulitis was appreciated on the CT scan. No obstructions or tumors were identified either. Treatment is to be antibiotic Cipro 500 mg twice daily for the next 10 days and Flagyl 500 mg 3 times daily for 7 days to clear up any bacterial infection. Suggest Bentyl 20 mg tablet every 6 hours as needed to relieve abdominal cramping pain and/or spasm. Diet should be light for the next couple of days until the antibiotics become effective. Suggest avoiding all dairy products and no apple juice or grape juice until pain settles down. Return to medical care if pain worsens in any fashion or form or gross bleeding occurs per rectum. You will need follow-up with Dr. Hurt in early November when she gets back from your cruise to have a follow-up colonoscopy completed to have a look at this area of the colon to make sure nothing untoward is going on. - My Orders Last 24 Hours: My Active Orders 11/02/19 07:45 Sodium Chloride 0.9% [Normal Saline] 100 ml IV ASDIRECTED 11/02/19 08:43 PATIENT RETYPE [BBK] Routine - Assessment/Plan Last 24 Hours: My Active Orders 11/02/19 07:45 Sodium Chloride 0.9% [Normal Saline] 100 ml IV ASDIRECTED 11/02/19 08:43 PATIENT RETYPE [BBK] Routine <Davian Sandoval - Last Filed: 11/02/19 08:47> Course - Re-Assessments/Exams Free Text/Narrative Re-Assessment/Exam: 11/02/19 08:02 care has been a month from Dr. Li at change of shift. CT of the abdomen and pelvis has been completed with IV and oral contrast. Visualized portion of the heart appear normal. Lung bases are clear. She does have a small hiatal hernia. Liver appears homogeneous with no intraductal dilatation. Gallbladder is normal with no calcified stones identified. Pancreas is mildly atrophic. Spleen is normal. Stomach appears to distend normally with contrast and enter appropriately into the pylorus and duodenum without any obstruction. Both kidneys fill with contrast without any obvious stones or obstruction of the ureters. Contrast reaches the rectal vault. No abnormalities are detected throughout the small bowel . There appears to be diffuse thickening of the descending colon. His would be compatible with a nonspecific colitis. There are few diverticuli present within the sigmoid colon but no signs of active diverticulitis. No obvious obstructive or mass identified in the distal colon. Will await the radiologist's opinion. 11/02/19 08:26 patient reports that she had 3 loose bowel movements before having the CT scan and 1 since returning from the CT suite. The first and contained a little bit of blood but the others were all just clear fluid. 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 It appears that she is developing a early diverticulitis. She had a colonoscopy about [address] Hurt and he did not find anything at that time. Due to persistent cramping mobility give her Bentyl 20 mg by mouth. 11/02/19 08:29 radiologist agrees with my findings. Patient will be treated with Cipro 500 mg twice a day by mouth for 10 days and Flagyl 500 mg 3 times a day for 7 days. Bentyl 20 mg by mouth every 6 hours needed for relief of abdominal cramping pain. You are advised to have follow-up colonoscopy in about a month's time. Keep the diet light such as soup today etc. Departure - Departure Time of Disposition: 08:30 Condition: Fair - Discharge Information *PRESCRIPTION DRUG MONITORING PROGRAM REVIEWED*: Not Applicable *COPY OF PRESCRIPTION DRUG MONITORING REPORT IN PATIENT EARLINE: Not Applicable
[2019-11-02] MEDS ORDERED: Diatrizoate Meglumine/Diatrizoate Sodium 37% 120 ML Bottle PO ONE (07:33)
[2019-11-02] MEDS ORDERED: Sodium Chloride 0.9% 10 ML Syringe FLUSH ONE (07:33)
[2019-11-02] MEDS ORDERED: Iopamidol 612 MG/ML 100 ML Bottle IVPUSH ONE (07:33)
[2019-11-02] MEDS ORDERED: Sodium Chloride 0.9% 100 ML IV SCH (07:45)
[2019-11-02] MEDS ORDERED: Dicyclomine 10 MG Cap PO ONE (08:26)
--- NOTE | 2019-11-02 08:33 | CT ---
CT abdomen and pelvis Technique: Multiple axial sections were obtained from above the dome of the diaphragm inferiorly through the pubic symphysis. Intravenous and oral contrast was utilized. Comparison: No prior abdominal or pelvic CT study is available. Findings: Diffuse bowel wall thickening is seen within the descending colon. Diverticuli are seen within the sigmoid colon. No inflammatory change of diverticulitis is seen. Visualized lung bases show nothing acute. Fatty infiltration is noted throughout the liver. Small hiatal hernia is noted. Spleen appears within normal limits. Adrenal glands show no nodule. Kidneys show symmetric contrast enhancement. Kidney show no hydronephrosis or mass. Aorta shows no aneurysm. No retroperitoneal adenopathy or mesenteric abnormalities are seen. Pancreas shows no discrete abnormality. No pelvic mass or adenopathy is identified. Appendix is seen which is normal in size. Delayed images show contrast within the distal ureters and bladder. Bone window settings were reviewed which show scattered degenerative change within the spine. No acute osseous finding is seen. Impression: 1. Diffuse bowel wall thickening within the descending colon compatible with nonspecific colitis. 2. Diverticuli within the sigmoid colon without findings of diverticulitis. 3. Diffuse fatty infiltration within the liver and small hiatal hernia. Diagnostic code #3 This report was dictated in [place] Standard Time
[2019-11-02 09:09] VITALS: BP 118/45; PULSE 56
== END 2019-11-02 09:10 | disposition home or self-care (01) ==
LOC: JD.ED 05:03
DX: K52.9 Noninfective gastroenteritis and colitis, unspecified (principal); E78.00 Pure hypercholesterolemia, unspecified; I10 Essential (primary) hypertension; E03.9 Hypothyroidism, unspecified; Z91.048 Other nonmedicinal substance allergy status; Z79.890 Hormone replacement therapy; Z79.899 Other long term (current) drug therapy; Z90.89 Acquired absence of other organs; Z90.710 Acquired absence of both cervix and uterus
CPT/HCPCS: 36415; 74177; 80053; 83690; 85007; 85027; 86140; 86850; 86900; 86901; 96361; 96374; 99284; A9270; J2405; J7030; Q9963; Q9967

== ENCOUNTER 2019-11-02 13:55 | Inpatient (IN) | payer MEDICARE, BC ==
[2019-11-02] MEDS ORDERED: Levofloxacin/Dextrose 5%-Water 750 MG in Premix Bag 1 BAG IV ONE (14:43)
[2019-11-02] MEDS ORDERED: Ondansetron 4 MG/2 ML SDV IVPUSH ONE ×2 (14:44→14:45)
[2019-11-02] MEDS ORDERED: HYDROmorphone 0.5 MG/0.5 ML Syringe IVPUSH ONE (14:45)
[2019-11-02] MEDS ORDERED: Dextrose 5%-0.9% NaCl 1,000 ML IV SCH ×2 (14:45→16:30)
--- NOTE | 2019-11-02 14:51 | EDM.PDOC ---
ED HPI GENERAL MEDICAL PROBLEM - General Chief Complaint: Gastrointestinal Problem Stated Complaint: RECTAL BLEEDING NOT BETTER Time Seen by Provider: 11/02/19 14:32 Source of Information: Reports: Patient History Limitations: Reports: No Limitations - History of Present Illness INITIAL COMMENTS - FREE TEXT/NARRATIVE: 69-year-old female presents to the ED at my request. I had taken over care for her earlier this morning from Dr. Li. Please see his history and physical examination. She awoke in the middle the night with severe abdominal pain with bloody stools 2. She had a CT scan of abdomen which revealed some nonspecific colitis of the descending colon but no active diverticulitis. Had 3 bowel movements after the contrast and none of them contain blood and she felt good enough to go home and was discharged on Cipro 500 mg twice a day and Flagyl 500 mg 3 times a day. The Flagyl was supposed to be taken for 7 days and Cipro for 10 days. However since getting home she's had 4-5 loose. Bloody stools. It appears therefore that she has an active bleed in her lower colon. She is getting intermittent spasms or cramps in the left hemiabdomen. No clots per rectum on this occasion. When she phoned and indicated that she was bleeding per rectum we advised to return to the hospital for admission. Her last colonoscopy was 5 years ago and was considered clean without any polyps. By Dr. Hurt. Onset: Today Duration: Hour(s):, Getting Worse Location: Reports: Abdomen (Left todd-dull cramping pain), Other (Current bright red blood per rectum.) Quality: Reports: Other Severity: Moderate (Intermittent cramping abdominal pain) Improves with: Reports: None Worsens with: Reports: None Context: Denies: Activity, Exercise, Lifting, Sick Contact, Trauma, Other Associated Symptoms: Reports: Loss of Appetite, Malaise, Weakness. Denies: No Other Symptoms, Confusion, Chest Pain, Cough, cough w sputum, Diaphoresis, Fever /Chills, Headaches, Nausea/Vomiting, Seizure, Shortness of Breath, Syncope Treatments CLIENT ACCOUNT ASSISTANT: Reports: Other (see below) (She has taken one Cipro on 1 Flagyl tablets since getting home .) Abdomen Pain Score (Numeric/FACES): 2 - Related Data Allergies Allergy/AdvReac Type Severity Reaction Status Date / Time lacquer Allergy Unknown Anaphylactic Uncoded 11/02/19 20:44 Shock Home Meds: Home Meds Levothyroxine [Synthroid] 50 mcg PO ACBREAKFAST 05/09/19 [History] Lisinopril/Hydrochlorothiazide [Lisinopril-Hctz 20-12.5 mg Tab] 1 tab PO BID 09/17 [History] Dicyclomine [Bentyl] 20 mg PO Q6H PRN #8 tablet 11/02/19 [Rx] Ketoconazole [Nizoral 2% Crm] 1 applic TOP BID PRN 11/02/19 [History] Pravastatin [Pravachol] 20 mg PO DAILY 11/02/19 [History] Past Medical History HEENT History: Reports: Impaired Vision Cardiovascular History: Reports: High Cholesterol, Hypertension LEAD MATERIAL HANDLER History: Reports: Polycystic Ovaries Psychiatric History: Reports: Anxiety Endocrine/Metabolic History: Reports: Hypothyroidism - Past Surgical History HEENT Surgical History: Reports: Tonsillectomy GI Surgical History: Reports: Appendectomy, Colonoscopy Female Surgical History: Reports: Hysterectomy, Other (See Below) Social & Family History - Tobacco Use Smoking Status *Q: Never Smoker - Caffeine Use Caffeine Use: Reports: Coffee - Recreational Drug Use Recreational Drug Use: No - Living Situation & Occupation Living situation: Reports: , with Spouse Occupation: Retired ED ROS GENERAL - Review of Systems Review Of Systems: See Below Constitutional: Reports: Malaise, Fatigue, Decreased Appetite. Denies: Fever, Chills HEENT: Reports: Glasses Respiratory: Reports: No Symptoms Cardiovascular: Reports: No Symptoms Endocrine: Reports: No Symptoms GI/Abdominal: Reports: Abdominal Pain (History of present illness), Melena ( Bright red bleeding per rectum.), Other : Reports: No Symptoms Musculoskeletal: Reports: Joint Pain Skin: Reports: No Symptoms Neurological: Reports: No Symptoms Psychiatric: Reports: No Symptoms Hematologic/Lymphatic: Reports: No Symptoms Immunologic: Reports: No Symptoms ED EXAM, GI/ABD - Physical Exam Exam: See Below Exam Limited By: No Limitations General Appearance: Alert, WD/WN, No Apparent Distress, Other (Capture 37.1 pulse is 81 and sinus respiratory disease 18 BP is 156/78 pulse ox 96%.) Eyes: Bilateral: Normal Appearance (No peripheral pallor.) Throat/Mouth: Normal Inspection, Normal Lips, Normal Oropharynx Head: Atraumatic, Normocephalic Neck: Normal Inspection, Supple, Non-Tender, Full Range of Motion. No: Lymphadenopathy (L), Lymphadenopathy (R) Respiratory/Chest: No Respiratory Distress, Lungs Clear, Normal Breath Sounds, No Accessory Muscle Use Cardiovascular: Normal Peripheral Pulses, Regular Rate, Rhythm, No Edema, No Gallop, No Murmur, No Rub GI/Abdominal Exam: Tender (Mildly tender in the distribution of the left hemicolon.), Abnormal Bowel Sounds (Bowel sounds are very quiet sent in all 4 quadrants when I examined her.). No: Guarding, Rigid, Rebound Rectal (Female) Exam: Bloody Stool Back Exam: Normal Inspection, Full Range of Motion. No: CVA Tenderness (L), CVA Tenderness (R) Extremities: Normal Inspection, Normal Range of Motion, Non-Tender, No Pedal Edema Neurological: Alert, Oriented, CN II-XII Intact, Normal Cognition Psychiatric: Normal Affect, Normal Mood Skin Exam: Warm, Dry, Intact, Normal Color, No Rash Course - Vital Signs Last Recorded V/S: Last Vital Signs Temp 36.6 C 11/03/19 12: Pulse 55 L 11/03/19 12:19 Resp 16 11/03/19 12:19 BP 130/63 11/03/19 12: Pulse Ox 98 11/03/19 12:19 Orthostatic Blood Pressure [ 99/63 Standing] Orthostatic Blood Pressure [ 107/47 Supine] - Orders/Labs/Meds Labs: Laboratory Tests 11/02/19 11/02/19 Range/Units 15:08 15:08 WBC 7.68 (3.98-10.04) K/mm3 RBC 4.04 (3.98-5.22) M/mm3 Hgb 12.5 (11.2-15.7) gm/dl Hct 36.9 (34.1-44.9) % MCV 91.3 (79.4-94.8) fl MCH 30.9 (25.6-32.2) pg MCHC 33.9 (32.2-35.5) g/dl RDW Std Deviation 41.7 (36.4-46.3) fL Plt Count 177 L (182-369) K/mm3 MPV 9.9 (9.4-12.3) fl Neut % (Auto) 75.1 H (34.0-71.1) % Lymph % (Auto) 13.9 L (19.3-51.7) % Stanley % (Auto) 9.1 (4.7-12.5) % Eos % (Auto) 1.4 (0.7-5.8) Baso % (Auto) 0.5 (0.1-1.2) % Neut # (Auto) 5.76 (1.56-6.13) K/mm3 Lymph # (Auto) 1.07 L (1.18-3.74) K/mm3 Stanley # (Auto) 0.70 H (0.24-0.36) K/mm3 Eos # (Auto) 0.11 (0.04-0.36) K/mm3 Baso # (Auto) 0.04 (0.01-0.08) K/mm3 C-Reactive Protein 1.0 (<1.0) mg/dL Meds: Medications Discontinued Medications Generic Name Dose Route Start Last Admin Trade Name Freq PRN Reason Stop Dose Admin Hydromorphone HCl 0.5 mg 11/02/19 14:45 11/02/19 15:31 Dilaudid IVPUSH 11/02/19 14:46 0.5 mg ONETIME ONE Administration Dextrose/Sodium Chloride 1,000 mls @ 125 mls/hr 11/02/19 14:45 11/02/19 15:34 Dextrose 5%-Normal Saline IV 125 mls/hr ASDIRECTED PRIMITIVO Administration Levofloxacin/Dextrose 750 mg/ 150 mls @ 100 mls/hr 11/02/19 14:43 11/02/19 15 :34 Premix IV 11/02/19 16:12 100 mls/hr ONETIME ONE Administration Dextrose/Sodium Chloride 1,000 mls @ 250 mls/hr 11/02/19 16:30 Dextrose 5%-Normal Saline IV ASDIRECTED PRIMITIVO Lactated Ringer's 1,000 mls @ 125 mls/hr 11/02/19 19:00 11/03/19 11:39 Ringers, Lactated IV 125 mls/hr ASDIRECTED PRIMITIVO Administration Morphine Sulfate 1 mg 11/02/19 18:55 11/03/19 05:54 Morphine IVPUSH 11/03/19 19:05 1 mg Q6H PRN Administration Pain (severe 7-10) Ondansetron HCl 4 mg 12/04/19 14:44 11/02/19 15:39 Zofran IVPUSH 11/02/19 14:45 Not Given ONETIME ONE Ondansetron HCl 4 mg 11/02/19 14:45 11/02/19 15:28 Zofran IVPUSH 11/02/19 14:46 4 mg ONETIME ONE Administration Pantoprazole Sodium 40 mg 11/02/19 19:00 11/03/19 06:03 Protonix Iv IVPUSH 40 mg Q12H PRIMITIVO Administration - Radiology Interpretation Free Text/Narrative:: 69-year-old female presents to the ED with persistent bleeding per rectum. Through the ED earlier this morning by Dr. Li and myself to the sudden onset of left todd-abdominal pain is strongly spastic and colicky. She then had passage of a blood clot per rectum and then a second one 2 hours later. This brought her to the ED. CT scan reveals a nonspecific colitis of the descending colon but no sign of active diverticulitis. At work also did not show any active infective process. She had 3 clear bowel movements after the CT scan with contrast in the ED. Therefore I elected to allow her to go home on Cipro 500 mg twice a day for 10 days and Flagyl 500 mg 3 times a day for 7 days and Bentyl 20 g every 6 hours needed for cramping. Since getting home she laid down and had about a 2-1/2 hour nap. However when she awoke she had quite bad cramping on the left side of her abdomen and subsequently his had 4 bloody stools in the last 2-1/2 hours. Stools appear blood. When she phoned in and reported that she was advised to return to the hospital for admission. Plan routine labs will be completed. I believe I had type and screen performed earlier this morning. At present she is not actively bleeding enough to warrant blood transfusion. I will place her on Levaquin 750 mg IV and follow this with Flagyl 500 mg IV. Given Zofran 4 mg IV for nausea relief and Dilaudid 0.5 mils grams IV for relief of abdominal cramping pain. I will discuss case with Dr. Torres consulting technical manager hospitalist with a view to admission to the hospital. - Re-Assessments/Exams Free Text/Narrative Re-Assessment/Exam: 11/02/19 16:00 Total white count is 7.68 with 75% neutrophils. Hemoglobin is 12.5 with hematocrit of 36.9. Platelet count is 177,000. Hemoglobin earlier this morning was 11.9. Patient may be slightly by me restricted as she has really had anything much to eat or drink yet today. Hemoglobin certainly has not dropped. Case discussed with on-call hospice Dr. Torres and she will see her in the ED with a view to admission [facility] the [facility] [place] [facility] as an inpatient until we gain control of the bleeding and infection suspect infection in the descending colon. Departure - Departure Time of Disposition: 18:15 Disposition: Admitted As Inpatient 64 Condition: Fair Clinical Impression: Lower GI hemorrhage, Non-specific colitis Abdominal pain Qualifiers: Abdominal location: left lower quadrant Qualified Code(s): R10.32 - Left lower quadrant pain - Discharge Information *PRESCRIPTION DRUG MONITORING PROGRAM REVIEWED*: Not Applicable *COPY OF PRESCRIPTION DRUG MONITORING REPORT IN PATIENT EARLINE: Not Applicable
--- NOTE | 2019-11-02 16:33 | PCM.HP.2 ---
H&P History of Present Illness - General Date of Service: 11/02/19 - History of Present Illness Initial Comments - Free Text/Narative: This is a 69 year old female who came to the ED for worsening abdominal pain and hematochezia. As per patient she started having abdominal pain that started in her LLQ and radiated to lower todd-abdomen. Described the pain as pressure and crampy, started when she woke up from nap around 9PM. Graded 10+ our of 10. Patient noted she was having the pain and went to the restroom since she felt she was going to have a bowel movement, while she was sitting there she started feeling lightheaded and had a small BM, described as brown. She went back to her room and lay down, at that point she broke in a cold sweat with tenesmus for which she went to the restroom again; she passed a clot. Her pain continued for approximately one hour while she was laying in bed, she then had another episode of chills, went to the restroom and passed only blood. after that she continued to feel tenesmus and chills as well as abdominal pain for which she decided to come to the ED. Once in ED, a CT was performed and she was found t have descending colitis and discharged on ciprofloxacin and Flagyl. She was sent home around 10PM, fell asleep for 2.5 hours, woke up and has 4 large blood per rectum episodes; she called the ED and was told to come back in for evaluation. - Related Data Allergies/Adverse Reactions: Allergies Allergy/AdvReac Type Severity Reaction Status Date / Time lacquer Allergy Unknown Anaphylactic Uncoded 11/02/19 20:44 Shock Home Medications: Home Meds Levothyroxine [Synthroid] 50 mcg PO ACBREAKFAST 05/09/19 [History] Lisinopril/Hydrochlorothiazide [Lisinopril-Hctz 20-12.5 mg Tab] 1 tab PO BID 09/17 [History] Ciprofloxacin HCl [Cipro] 500 mg PO BID #20 tablet 11/02/19 [Rx] Dicyclomine [Bentyl] 20 mg PO Q6H PRN #8 tablet 11/02/19 [Rx] Ketoconazole [Ketoconazole 2%] 1 applic TOP BID PRN 11/02/19 [History] Pravastatin [Pravachol] 20 mg PO DAILY 11/02/19 [History] metroNIDAZOLE [Flagyl] 500 mg PO Q8H #21 tab 11/02/19 [Rx] Past Medical History HEENT History: Reports: Impaired Vision Cardiovascular History: Reports: High Cholesterol, Hypertension RIVETER HAND History: Reports: Polycystic Ovaries Psychiatric History: Reports: Anxiety Endocrine/Metabolic History: Reports: Hypothyroidism - Past Surgical History HEENT Surgical History: Reports: Tonsillectomy GI Surgical History: Reports: Appendectomy, Colonoscopy Female Surgical History: Reports: Hysterectomy, Other (See Below) Social & Family History - Tobacco Use Smoking Status *Q: Never Smoker - Caffeine Use Caffeine Use: Reports: Coffee - Recreational Drug Use Recreational Drug Use: No - Living Situation & Occupation Living situation: Reports: , with Spouse Occupation: Retired H&P Review of Systems - Review of Systems: Review Of Systems: See Below General: Denies: Fever, Chills, Malaise, Weakness, Fatigue, Night Sweats, Diaphoresis, Decreased Appetite, Weight Loss, Weight Gain HEENT: Denies: Dysphasia, Ear Pain, Eye Pain, Hearing Changes, Rhinitis, Post Nasal Drip, Sinus Congestion, Sore Throat, Vertigo Pulmonary: Denies: Shortness of Breath, Wheezing, Pleuritic Chest Pain, Cough, Sputum Cardiovascular: Denies: Chest Pain, Palpitations, Dyspnea on Exertion, Orthopnea , PND, Edema, Lightheadedness, Syncope, Claudication Gastrointestinal: Reports: Abdominal Pain, Black Stool, Bloody Stool, Hematochezia. Denies: Anorexia, Constipation, Diarrhea, Decreased Appetite, Difficulty Swallowing, Distension, Flatus, Hematemesis, Melena, Mucous in Stool , Nausea, Stool Incontinence, Vomiting Genitourinary: Denies: Dysuria, Frequency, Burning, Pain, Urgency, Incontinence Musculoskeletal: Denies: Joint Pain, Joint Swelling, Muscle Pain, Muscle Stiffness Skin: Denies: Cyanosis, Jaundice, Mottled, Pallor Psychiatric: Denies: Confusion, Depression, Mood Lability, Anxiety Neurological: Denies: Confusion, Dizziness, Headache, Numbness Hematologic/Lymphatic: Denies: Easy Bleeding, Easy Bruising Exam - Exam Exam: See Below - Vital Signs Vital Signs: Last Vital Signs Temp 98.8 F 11/02/19 14:15 Pulse 81 11/02/19 14:15 Resp 18 11/02/19 14:15 BP 156/78 H 11/02/19 14:15 Pulse Ox 96 11/02/19 14:15 Orthostatic Blood Pressure [ 99/63 Standing] Orthostatic Blood Pressure [ 107/47 Supine] Weight: 74.843 kg - Exam Physical Exam Comments:: General Appearance: Alert, WD/WN, No Apparent Distress, Other (Capture 37.1 pulse is 81 and sinus respiratory disease 18 BP is 156/78 pulse ox 96%.) Eyes: Bilateral: Normal Appearance (No peripheral pallor.) Throat/Mouth: Normal Inspection, Normal Lips, Normal Oropharynx Head: Atraumatic, Normocephalic Neck: Normal Inspection, Supple, Non-Tender, Full Range of Motion. No: Lymphadenopathy (L), Lymphadenopathy (R) Respiratory/Chest: No Respiratory Distress, Lungs Clear, Normal Breath Sounds, No Accessory Muscle Use Cardiovascular: Normal Peripheral Pulses, Regular Rate, Rhythm, No Edema, No Gallop, No Murmur, No Rub GI/Abdominal Exam: Tender (Mildly tender in the distribution of the left hemicolon.), Abnormal Bowel Sounds (Bowel sounds are very quiet sent in all 4 quadrants when I examined her.). No: Guarding, Rigid, Rebound Rectal (Female) Exam: Bloody Stool Back Exam: Normal Inspection, Full Range of Motion. No: CVA Tenderness (L), CVA Tenderness (R) Extremities: Normal Inspection, Normal Range of Motion, Non-Tender, No Pedal Edema Neurological: Alert, Oriented, CN II-XII Intact, Normal Cognition Psychiatric: Normal Affect, Normal Mood Skin Exam: Warm, Dry, Intact, Normal Color, No Rash - Patient Data Lab Results Last 24 hrs: Laboratory Results - last 24 hr 11/02/19 11/02/19 Range/Units 15:08 15:08 WBC 7.68 (3.98-10.04) K/mm3 RBC 4.04 (3.98-5.22) M/mm3 Hgb 12.5 (11.2-15.7) gm/dl Hct 36.9 (34.1-44.9) % MCV 91.3 (79.4-94.8) fl MCH 30.9 (25.6-32.2) pg MCHC 33.9 (32.2-35.5) g/dl RDW Std Deviation 41.7 (36.4-46.3) fL Plt Count 177 L (182-369) K/mm3 MPV 9.9 (9.4-12.3) fl Neut % (Auto) 75.1 H (34.0-71.1) % Lymph % (Auto) 13.9 L (19.3-51.7) % Dickinson % (Auto) 9.1 (4.7-12.5) % Eos % (Auto) 1.4 (0.7-5.8) Baso % (Auto) 0.5 (0.1-1.2) % Neut # (Auto) 5.76 (1.56-6.13) K/mm3 Lymph # (Auto) 1.07 L (1.18-3.74) K/mm3 Dickinson # (Auto) 0.70 H (0.24-0.36) K/mm3 Eos # (Auto) 0.11 (0.04-0.36) K/mm3 Baso # (Auto) 0.04 (0.01-0.08) K/mm3 C-Reactive Protein 1.0 (<1.0) mg/dL Result Diagrams: 11/02/19 23:00 - Problem List (1) Colitis SNOMED Code(s): 12106023 ICD Code: K52.9 - NONINFECTIVE GASTROENTERITIS AND COLITIS, UNSPECIFIED Status: Acute Current Visit: Yes (2) Hypertension SNOMED Code(s): 02914543 ICD Code: I10 - ESSENTIAL (PRIMARY) HYPERTENSION Status: Acute Current Visit: Yes (3) Dyslipidemia SNOMED Code(s): 539485447 ICD Code: E78.5 - HYPERLIPIDEMIA, UNSPECIFIED Status: Acute Current Visit : Yes (4) BRBPR (bright red blood per rectum) SNOMED Code(s): 38872546 ICD Code: K62.5 - HEMORRHAGE OF ANUS AND RECTUM Status: Acute Current Visit: Yes Problem List Initiated/Reviewed/Updated: Yes Assessment/Plan Comment:: Colitis BRBPR (bright red blood per rectum) Hypotension Colitis confirmed by CT imaging, no WBC count or fever Given ciprofloxacin and metronidazole yesterday in ED Previous colonoscopy 5 years ago, told to come back in 5 years Unclear if she had melena prior to episodes PLAN - Hb trend q4h - Pantoprazole 40mg IV q12h - LR at 125 - Consult surgery for colonoscopy if Hb continues to drop - NPO after midnight - Clear liquid diet until midnight - Monitor VS Hypertension BP on admission 156/78 but later on dropped to 99/63 Given IVF bolus in ED, BP stable PLAN - Hold all home medications Dyslipidemia No acute issues PLAN - Continue home medications once PO PROPHYLAXIS DVT- pharmacological is contraindicated, compression stocking GI- Pantoprazole as per GI bleed management CODE STATUS: FULL CODE DISPOSITION: Patient will be admitted to the medical floor for hemodynamic monitoring as well as trending of Hb. Will consult surgery for colonoscopy if Hb trends down.
[2019-11-02] MEDS: Lactated Ringers 1,000 ML IV SCH (19:55)
[2019-11-02] MEDS: Morphine 2 MG/ML Syringe IVPUSH PRN (19:57)
[2019-11-02] MEDS: Pantoprazole 40 MG Vial IVPUSH SCH (20:06)
[2019-11-03] MEDS: Lactated Ringers 1,000 ML IV SCH ×2 (03:15→11:39)
[2019-11-03] MEDS: Morphine 2 MG/ML Syringe IVPUSH PRN (05:54)
[2019-11-03] MEDS: Pantoprazole 40 MG Vial IVPUSH SCH (06:03)
[2019-11-03 12:22] VITALS: BP 130/63; PULSE 55
--- NOTE | 2019-11-03 15:47 | PCM.DCSUM1 ---
Discharge Summary - Hospital Course HPI Initial Comments: This is a 69 year old female who came to the ED for worsening abdominal pain and hematochezia. As per patient she started having abdominal pain that started in her LLQ and radiated to lower todd-abdomen. Described the pain as pressure and crampy, started when she woke up from nap around 9PM. Graded 10+ our of 10. Patient noted she was having the pain and went to the restroom since she felt she was going to have a bowel movement, while she was sitting there she started feeling lightheaded and had a small BM, described as brown. She went back to her room and lay down, at that point she broke in a cold sweat with tenesmus for which she went to the restroom again; she passed a clot. Her pain continued for approximately one hour while she was laying in bed, she then had another episode of chills, went to the restroom and passed only blood. after that she continued to feel tenesmus and chills as well as abdominal pain for which she decided to come to the ED. Once in ED, a CT was performed and she was found t have descending colitis and discharged on ciprofloxacin and Flagyl. She was sent home around 10PM, fell asleep for 2.5 hours, woke up and has 4 large blood per rectum episodes; she called the ED and was told to come back in for evaluation. Diagnosis: Stroke: No - Discharge Data Discharge Date: 11/03/19 Discharge Disposition: Home, Self-Care 01 Condition: Good - Referral to Home Health Primary Care Physician: Venkat Mariee MD - Discharge Diagnosis/Problem(s) (1) Colitis SNOMED Code(s): 02879154 ICD Code: K52.9 - NONINFECTIVE GASTROENTERITIS AND COLITIS, UNSPECIFIED Status: Acute Current Visit: Yes (2) Hypertension SNOMED Code(s): 85783663 ICD Code: I10 - ESSENTIAL (PRIMARY) HYPERTENSION Status: Acute Current Visit: Yes (3) Dyslipidemia SNOMED Code(s): 608633983 ICD Code: E78.5 - HYPERLIPIDEMIA, UNSPECIFIED Status: Acute Current Visit : Yes (4) BRBPR (bright red blood per rectum) SNOMED Code(s): 09662608 ICD Code: K62.5 - HEMORRHAGE OF ANUS AND RECTUM Status: Resolved Current Visit: Yes - Patient Summary/Data Recommended Follow-up Testing/Procedures: Eli CBC in 2-3 days Planned Operative Procedure(s) after DC: Colonoscopy Hospital Course: PAtient came in with BRBPR Admitted with Hb trend which did not decrease She did not have any more bloody or melenous bowel movements She tolerated diet and abdominal pain was resolved She is being discharged to f/u with PCP with a repeat CBC and GI specialty for a colonoscopy - Patient Instructions Diet: Heart Healthy Diet Driving: May Drive Today - Discharge Plan *PRESCRIPTION DRUG MONITORING PROGRAM REVIEWED*: Not Applicable *COPY OF PRESCRIPTION DRUG MONITORING REPORT IN PATIENT EARLINE: Not Applicable Home Medications: Home Meds Levothyroxine [Synthroid] 50 mcg PO ACBREAKFAST 05/09/19 [History] Lisinopril/Hydrochlorothiazide [Lisinopril-Hctz 20-12.5 mg Tab] 1 tab PO BID 09/17 [History] Dicyclomine [Bentyl] 20 mg PO Q6H PRN #8 tablet 11/02/19 [Rx] Ketoconazole [Nizoral 2% Crm] 1 applic TOP BID PRN 11/02/19 [History] Pravastatin [Pravachol] 20 mg PO DAILY 11/02/19 [History] Patient Handouts: Rectal Bleeding Forms: ED Department Discharge Referrals: Venkat Mariee MD [Primary Care Provider] - - Discharge Summary/Plan Comment DC Time >30 min.: Yes - General Info Date of Service: 11/03/19 Subjective Update: slept ok abdominal pain has resolved has had some loose stools no further melena or BRBPR episodes - Patient Data Vitals - Most Recent: Last Vital Signs Temp 97.9 F 11/03/19 12:19 Pulse 55 L 11/03/19 12:19 Resp 16 11/03/19 12:19 BP 130/63 11/03/19 12:19 Pulse Ox 98 11/03/19 12:19 Orthostatic Blood Pressure [ 99/63 Standing] Orthostatic Blood Pressure [ 107/47 Supine] Weight - Most Recent: 76.975 kg I&O - Last 24 hours: Intake & Output 11/03/19 11/03/19 11/03/19 06:59 14:59 22:59 Intake Total 1012 Output Total 1350 Balance -338 Lab Results - Last 24 hrs: Laboratory Results - last 24 hr 11/02/19 11/02/19 11/02/19 Range/Units 15:08 19:27 23:00 Hgb 11.4 11.0 L (11.2-15.7) gm/dl Sodium (136-145) mEq/L Potassium (3.5-5.1) mEq/L Chloride (98-107) mEq/L Carbon Dioxide (21-32) mEq/L Anion Gap (5-15) BUN (7-18) mg/dL Creatinine (0.55-1.02) mg/dL Est Cr Clr Drug Dosing mL/min Estimated GFR (MDRD) (>60) mL/min BUN/Creatinine Ratio (14-18) Glucose (83-115) mg/dL Calcium (8.5-10.1) mg/dL Phosphorus (2.6-4.7) mg/dL Magnesium (1.8-2.4) mg/dl C-Reactive Protein 1.0 (<1.0) mg/dL 11/03/19 11/03/19 11/03/19 Range/Units 03:05 06:51 06:51 Hgb 10.6 L 10.9 L (11.2-15.7) gm/dl Sodium 140 (136-145) mEq/L Potassium 4.0 (3.5-5.1) mEq/L Chloride 106 (98-107) mEq/L Carbon Dioxide 28 (21-32) mEq/L Anion Gap 10.0 (5-15) BUN 11 (7-18) mg/dL Creatinine 1.1 H (0.55-1.02) mg/dL Est Cr Clr Drug Dosing 37.10 mL/min Estimated GFR (MDRD) 49 (>60) mL/min BUN/Creatinine Ratio 10.0 L (14-18) Glucose 101 (83-115) mg/dL Calcium 8.8 (8.5-10.1) mg/dL Phosphorus 3.1 (2.6-4.7) mg/dL Magnesium 1.9 (1.8-2.4) mg/dl C-Reactive Protein (<1.0) mg/dL 11/03/19 Range/Units 10:56 Hgb 10.5 L (11.2-15.7) gm/dl Sodium (136-145) mEq/L Potassium (3.5-5.1) mEq/L Chloride (98-107) mEq/L Carbon Dioxide (21-32) mEq/L Anion Gap (5-15) BUN (7-18) mg/dL Creatinine (0.55-1.02) mg/dL Est Cr Clr Drug Dosing mL/min Estimated GFR (MDRD) (>60) mL/min BUN/Creatinine Ratio (14-18) Glucose (83-115) mg/dL Calcium (8.5-10.1) mg/dL Phosphorus (2.6-4.7) mg/dL Magnesium (1.8-2.4) mg/dl C-Reactive Protein (<1.0) mg/dL Med Orders - Current: Current Medications Morphine Sulfate (Morphine) 1 mg IVPUSH Q6H PRN PRN Reason: Pain (severe 7-10) Stop: 11/03/19 19:05 Last Admin: 11/03/19 05:54 Dose: 1 mg Pantoprazole Sodium (Protonix Iv) 40 mg IVPUSH Q12H [facility] Last Admin: 11/03/19 06:03 Dose: 40 mg Discontinued Medications Hydromorphone HCl (Dilaudid) 0.5 mg IVPUSH ONETIME ONE Stop: 11/02/19 14:46 Last Admin: 11/02/19 15:31 Dose: 0.5 mg Dextrose/Sodium Chloride (Dextrose 5%-Normal Saline) 1,000 mls @ 125 mls/hr IV ASDIRECTED [facility] Last Admin: 11/02/19 15:34 Dose: 125 mls/hr Levofloxacin/Dextrose 750 mg/ (Premix) 150 mls @ 100 mls/hr IV ONETIME ONE Stop: 11/02/19 16:12 Last Admin: 11/02/19 15:34 Dose: 100 mls/hr Dextrose/Sodium Chloride (Dextrose 5%-Normal Saline) 1,000 mls @ 250 mls/hr IV ASDIRECTED [facility] Lactated Ringer's (Ringers, Lactated) 1,000 mls @ 125 mls/hr IV ASDIRECTED [facility] Last Admin: 11/03/19 11:39 Dose: 125 mls/hr Ondansetron HCl (Zofran) 4 mg IVPUSH ONETIME ONE Stop: 11/02/19 14:45 Last Admin: 11/02/19 15:39 Dose: Not Given Ondansetron HCl (Zofran) 4 mg IVPUSH ONETIME ONE Stop: 11/02/19 14:46 Last Admin: 11/02/19 15:28 Dose: 4 mg - Exam General: Reports: Alert, Oriented, Cooperative, No Acute Distress HEENT: Reports: Pupils Equal, Pupils Reactive, EOMI, Mucous Membr. Moist/[place] Neck: Reports: Supple, Trachea Midline, No JVD, No Thyromegaly Lungs: Reports: Clear to Auscultation, Normal Respiratory Effort. Denies: Crackles, Rales, Rhonchi, Wheezing Cardiovascular: Reports: Regular Rate, Regular Rhythm. Denies: Murmurs, Gallops , Rubs GI/Abdominal Exam: Normal Bowel Sounds, Soft, Non-Tender, No Organomegaly, No Distention Back Exam: Reports: Normal Inspection. Denies: CVA Tenderness (L), CVA Tenderness (R) Extremities: Normal Inspection, Normal Range of Motion, Non-Tender Psy/Mental Status: Reports: Alert, Normal Affect, Normal Mood
== END 2019-11-03 17:34 | disposition home or self-care (01) | DRG 392 ==
LOC: JD.ED 13:55 → JD.MS 17:38
PROVIDERS: ADMIT Internal Medicine; ATTEND Internal Medicine
DX: K92.1 Melena (principal); K52.9 Noninfective gastroenteritis and colitis, unspecified; R10.32 Left lower quadrant pain; K62.5 Hemorrhage of anus and rectum; I10 Essential (primary) hypertension; E78.5 Hyperlipidemia, unspecified; E28.2 Polycystic ovarian syndrome; H54.7 Unspecified visual loss; E78.00 Pure hypercholesterolemia, unspecified; F41.9 Anxiety disorder, unspecified; I95.9 Hypotension, unspecified; E03.9 Hypothyroidism, unspecified; Z90.89 Acquired absence of other organs; Z79.890 Hormone replacement therapy; Z79.899 Other long term (current) drug therapy; Z88.8 Allergy status to other drugs, medicaments and biological substances; Z90.710 Acquired absence of both cervix and uterus
CPT/HCPCS: 36415; 85025; 86140; J1170; J1956; J2405; J7042; 80048; 83735; 84100; 85018; 96365; 96366; 96375; 99285; 99285-25; C9113; J2270; J7120

== ENCOUNTER 2020-07-09 20:11 | Emergency (ER) | payer MEDICARE, BC ==
[2020-07-09 20:24] VITALS: BP 175/90; PULSE 63
--- NOTE | 2020-07-09 20:29 | EDM.PDOC ---
ED HPI GENERAL MEDICAL PROBLEM - General Chief Complaint: Flank Pain Stated Complaint: SIDE PAIN Time Seen by Provider: 07/09/20 20:29 - History of Present Illness INITIAL COMMENTS - FREE TEXT/NARRATIVE: 69-year-old female presents the emergency room with right chest and flank pain as well as upper abdominal pain. This is been going on for about a day and a half does not seem to be affected by diet. Patient had a cholecystectomy done this last winter and the pain is not that bad it catches and is sharp at times. The patient has not been doing much in the way of activity since she had her gallbladder out trying to take it easy. She still in the process of learning what she can and cannot eat after having her gallbladder out. She denies any nausea vomiting constipation. However if she eats the wrong stuff she has some loose stools. Is treated for hypertension she has a history of hyperlipidemia however currently is not taking any medications for this. Family history is she has a mother with congestive heart failure patient does not know any other details with this. Patient does not smoke. Right Upper Flank Pain Score (Numeric/FACES): 8 - Related Data Allergies Allergy/AdvReac Type Severity Reaction Status Date / Time lacquer Allergy Unknown Anaphylactic Uncoded 11/02/19 20:44 Shock Home Meds: Home Meds Levothyroxine [Synthroid] 50 mcg PO ACBREAKFAST 05/09/19 [History] Lisinopril/Hydrochlorothiazide [Lisinopril-Hctz 20-12.5 mg Tab] 1 tab PO BID 05/09/19 [History] Past Medical History HEENT History: Reports: Impaired Vision Other HEENT History: Wears glasses Cardiovascular History: Reports: High Cholesterol, Hypertension Gastrointestinal History: Reports: Other (See Below) Other Gastrointestinal History: current GI bleed Genitourinary History: Reports: None [employer] History: Reports: Polycystic Ovaries Psychiatric History: Reports: Anxiety Endocrine/Metabolic History: Reports: Hypothyroidism - Past Surgical History HEENT Surgical History: Reports: Tonsillectomy GI Surgical History: Reports: Appendectomy, Cholecystectomy, Colonoscopy Female Surgical History: Reports: Hysterectomy, Salpingo-Oophorectomy Social & Family History - Family History Family Medical History: Noncontributory - Tobacco Use Smoking Status *Q: Never Smoker - Caffeine Use Caffeine Use: Reports: Coffee - Recreational Drug Use Recreational Drug Use: No - Living Situation & Occupation Living situation: Reports: , with Spouse Occupation: Retired ED ROS GENERAL - Review of Systems Review Of Systems: See Below Constitutional: Reports: No Symptoms HEENT: Reports: No Symptoms Respiratory: Reports: Pleuritic Chest Pain Cardiovascular: Reports: No Symptoms Endocrine: Reports: No Symptoms GI/Abdominal: Reports: No Symptoms : Reports: No Symptoms Musculoskeletal: Reports: Other (Flank pain) Skin: Reports: No Symptoms Neurological: Reports: No Symptoms Psychiatric: Reports: No Symptoms Hematologic/Lymphatic: Reports: No Symptoms Immunologic: Reports: No Symptoms ED EXAM, GENERAL - Physical Exam Exam: See Below Exam Limited By: No Limitations General Appearance: Alert, No Apparent Distress Throat/Mouth: Normal Inspection, Normal Lips, Normal Teeth, Normal Gums, Normal Oropharynx, Normal Voice, No Airway Compromise Head: Atraumatic, Normocephalic Neck: Normal Inspection. No: Lymphadenopathy (L), Lymphadenopathy (R) Respiratory/Chest: No Respiratory Distress, Lungs Clear, Normal Breath Sounds Cardiovascular: Regular Rate, Rhythm, No Edema, No Murmur GI/Abdominal: Normal Bowel Sounds, Soft, Tender (Discomfort right upper quadrants more coming from the ribs anteriorly and lateral deep breathing may aggravated a little bit). No: Guarding, Rigid, Rebound Back Exam: Normal Inspection. No: CVA Tenderness (L), CVA Tenderness (R), Vertebral Tenderness Extremities: Normal Inspection, No Pedal Edema EKG INTERPRETATION EKG Date: 07/09/20 Rhythm: NSR Rate (Beats/Min): 58 [place]: Normal P-Wave: Present QRS: Other (Low voltage) ST-T: Normal QT: Normal Comparison: No Change (No significant change from 05/09/2019) EKG Interpretation Comments: Borderline EKG, nonacute Course - Vital Signs Last Recorded V/S: Last Vital Signs Temp 36.4 C 07/09/20 20:20 Pulse 63 07/09/20 20:20 Resp 15 07/09/20 20:20 BP 175/90 H 07/09/20 20:20 Pulse Ox 99 07/09/20 20:20 - Orders/Labs/Meds Orders: Active Orders 24 hr Category Date Time Status EKG Documentation Completion [RC] STAT Care 07/09/20 20:37 Active Ang Chest [CT] Stat Exams 07/09/20 21:52 Taken Chest 1V Frontal [CR] Stat Exams 07/09/20 21:20 Taken CULTURE URINE [RM] Stat Lab 07/09/20 21:05 Received Sodium Chloride 0.9% [Normal Saline] 1,000 ml Med 07/09/20 22:00 Active IV ASDIRECTED Medication Orders Sodium Chloride (Normal Saline) 1,000 mls @ 150 mls/hr IV ASDIRECTED [facility] Labs: Laboratory Tests 07/09/20 07/09/20 07/09/20 Range/Units 20:50 20:50 20:50 WBC 4.45 (3.98-10.04) K/mm3 RBC 3.97 L (3.98-5.22) M/mm3 Hgb 11.9 (11.2-15.7) gm/dl Hct 36.9 (34.1-44.9) % MCV 92.9 (79.4-94.8) fl MCH 30.0 (25.6-32.2) pg MCHC 32.2 (32.2-35.5) g/dl RDW Std Deviation 42.1 (36.4-46.3) fL Plt Count 185 (182-369) K/mm3 MPV 10.1 (9.4-12.3) fl Neut % (Auto) 51.6 (34.0-71.1) % Lymph % (Auto) 33.3 (19.3-51.7) % [place] % (Auto) 11.2 (4.7-12.5) % Eos % (Auto) 2.2 (0.7-5.8) Baso % (Auto) 1.3 H (0.1-1.2) % Neut # (Auto) 2.29 (1.56-6.13) K/mm3 Lymph # (Auto) 1.48 (1.18-3.74) K/mm3 [place] # (Auto) 0.50 H (0.24-0.36) K/mm3 Eos # (Auto) 0.10 (0.04-0.36) K/mm3 Baso # (Auto) 0.06 (0.01-0.08) K/mm3 PT 10.4 (9.7-12.0) SECONDS INR 0.97 APTT 25 (22-31) SECONDS D-Dimer, Quantitative 0.68 H (0.19-0.50) mg/L Sodium 139 (136-145) mEq/L Potassium 3.8 (3.5-5.1) mEq/L Chloride 102 (98-107) mEq/L Carbon Dioxide 29 (21-32) mEq/L Anion Gap 11.8 (5-15) BUN 16 (7-18) mg/dL Creatinine 1.2 H (0.55-1.02) mg/dL Est Cr Clr Drug Dosing 34.01 mL/min Estimated GFR (MDRD) 44 (>60) mL/min BUN/Creatinine Ratio 13.3 L (14-18) Glucose 114 (83-115) mg/dL Calcium 8.8 (8.5-10.1) mg/dL Total Bilirubin 0.2 (0.2-1.0) mg/dL AST 18 (15-37) U/L ALT 30 (14-59) U/L Alkaline Phosphatase 114 (46-116) U/L Troponin I < 0.017 (0.00-0.056) ng/mL Total Protein 7.0 (6.4-8.2) g/dl Albumin 3.5 (3.4-5.0) g/dl Globulin 3.5 gm/dL Albumin/Globulin Ratio 1.0 (1-2) Urine Color (Yellow) Urine Appearance (Clear) Urine pH (5.0-8.0) Ur Specific [place] (1.005-1.030) Urine Protein (Negative) Urine Glucose (UA) (Negative) Urine Ketones (Negative) Urine Occult Blood (Negative) Urine Nitrite (Negative) Urine Bilirubin (Negative) Urine Urobilinogen (0.2-1.0) Ur Leukocyte Esterase (Negative) Urine RBC (0-5) /hpf Urine WBC (0-5) /hpf Ur Squamous Epith Cells (0-5) /hpf Urine Bacteria (FEW) /hpf Urine Mucus (FEW) /hpf 07/09/20 Range/Units 21:05 WBC (3.98-10.04) K/mm3 RBC (3.98-5.22) M/mm3 Hgb (11.2-15.7) gm/dl Hct (34.1-44.9) % MCV (79.4-94.8) fl MCH (25.6-32.2) pg MCHC (32.2-35.5) g/dl RDW Std Deviation (36.4-46.3) fL Plt Count (182-369) K/mm3 MPV (9.4-12.3) fl Neut % (Auto) (34.0-71.1) % Lymph % (Auto) (19.3-51.7) % [place] % (Auto) (4.7-12.5) % Eos % (Auto) (0.7-5.8) Baso % (Auto) (0.1-1.2) % Neut # (Auto) (1.56-6.13) K/mm3 Lymph # (Auto) (1.18-3.74) K/mm3 [place] # (Auto) (0.24-0.36) K/mm3 Eos # (Auto) (0.04-0.36) K/mm3 Baso # (Auto) (0.01-0.08) K/mm3 PT (9.7-12.0) SECONDS INR APTT (22-31) SECONDS D-Dimer, Quantitative (0.19-0.50) mg/L Sodium (136-145) mEq/L Potassium (3.5-5.1) mEq/L Chloride (98-107) mEq/L Carbon Dioxide (21-32) mEq/L Anion Gap (5-15) BUN (7-18) mg/dL Creatinine (0.55-1.02) mg/dL Est Cr Clr Drug Dosing mL/min Estimated GFR (MDRD) (>60) mL/min BUN/Creatinine Ratio (14-18) Glucose (83-115) mg/dL Calcium (8.5-10.1) mg/dL Total Bilirubin (0.2-1.0) mg/dL AST (15-37) U/L ALT (14-59) U/L Alkaline Phosphatase (46-116) U/L Troponin I (0.00-0.056) ng/mL Total Protein (6.4-8.2) g/dl Albumin (3.4-5.0) g/dl Globulin gm/dL Albumin/Globulin Ratio (1-2) Urine Color Yellow (Yellow) Urine Appearance Clear (Clear) Urine pH 6.0 (5.0-8.0) Ur Specific [place] 1.025 (1.005-1.030) Urine Protein Negative (Negative) Urine Glucose (UA) Negative (Negative) Urine Ketones Negative (Negative) Urine Occult Blood Negative (Negative) Urine Nitrite Negative (Negative) Urine Bilirubin Negative (Negative) Urine Urobilinogen 0.2 (0.2-1.0) Ur Leukocyte Esterase Trace H (Negative) Urine RBC Not seen (0-5) /hpf Urine WBC 0-5 (0-5) /hpf Ur Squamous Epith Cells 0-5 (0-5) /hpf Urine Bacteria Rare (FEW) /hpf Urine Mucus Not seen (FEW) /hpf Meds: Medications Generic Name Dose Route Start Last Admin Trade Name Freq PRN Reason Stop Dose Admin Sodium Chloride 1,000 mls @ 150 mls/hr 07/09/20 22:00 Normal Saline IV ASDIRECTED [facility] Discontinued Medications Generic Name Dose Route Start Last Admin Trade Name Freq PRN Reason Stop Dose Admin Sodium Chloride 500 mls @ 999 mls/hr 07/09/20 21:51 07/09/20 22:07 Normal Saline IV 07/09/20 22:21 999 mls/hr .BOLUS ONE Administration Sodium Chloride 100 mls @ 4 mls/sec 07/09/20 22:55 07/09/20 22:57 Normal Saline IV 07/09/20 22:56 4 mls/sec ONETIME ONE Administration Iopamidol 100 ml 07/09/20 22:55 07/09/20 22:56 Isovue-370 (76%) IVPUSH 07/09/20 22:56 100 ml ONETIME ONE Administration - Re-Assessments/Exams Free Text/Narrative Re-Assessment/Exam: 07/10/20 00:36 D-dimer is slightly elevated given the uncertainty of her diagnosis discussed the situation with the patient and she would like me to go ahead and check a CTA of the chest. Was done and shows no evidence of PE however she has hepatic steatosis and there is a round 3 x 3.8 cm region in the liver this may represent fatty sparing but they cannot exclude a possible underlying liver liver mass. I discussed the findings with the patient. For her discomfort we will have her use Tylenol up to 3 g in a 24-hour period and have recommended she follow-up with her physician to discuss this possible liver lesion and to see how her pain is doing. She is in agreement to this Departure - Departure Time of Disposition: 00:43 Disposition: Home, Self-Care 01 Clinical Impression: Chest wall pain, Strain of abdominal wall - Discharge Information Referrals: Venkat Mariee MD [Primary Care Provider] - Forms: ED Department Discharge Additional Instructions: Return to the emergency room with any questions problems or worsening symptoms. Tylenol as needed for the discomfort. Do not exceed 3000 mg in a 24-hour period. Follow-up with your regular doctor at the end of this week to see how your pain is doing and also discuss this questionable area seen on your liver during the CT. Sepsis Event Note (ED) - Evaluation Sepsis Screening Result: No Definite Risk - Focused Exam Vital Signs: Vital Signs Temp Pulse Resp BP Pulse Ox 07/09/20 20:20 36.4 C 63 15 175/90 H 99 - My Orders Last 24 Hours: My Active Orders 07/09/20 20:37 EKG Documentation Completion [RC] STAT 07/09/20 21:05 CULTURE URINE [RM] Stat 07/09/20 21:20 Chest 1V Frontal [CR] Stat 07/09/20 21:52 Ang Chest [CT] Stat 07/09/20 22:00 Sodium Chloride 0.9% [Normal Saline] 1,000 ml IV ASDIRECTED - Assessment/Plan Last 24 Hours: My Active Orders 07/09/20 20:37 EKG Documentation Completion [RC] STAT 07/09/20 21:05 CULTURE URINE [RM] Stat 07/09/20 21:20 Chest 1V Frontal [CR] Stat 07/09/20 21:52 Ang Chest [CT] Stat 07/09/20 22:00 Sodium Chloride 0.9% [Normal Saline] 1,000 ml IV ASDIRECTED
[2020-07-09] MEDS ORDERED: Sodium Chloride 0.9% 500 ML IV ONE (21:51)
[2020-07-09] MEDS ORDERED: Sodium Chloride 0.9% 1,000 ML IV SCH (22:00)
[2020-07-09] MEDS ORDERED: Iopamidol 755 Mg/ML 100 ML Bottle IVPUSH ONE (22:55)
[2020-07-09] MEDS ORDERED: Sodium Chloride 0.9% 100 ML IV ONE (22:55)
--- NOTE | 2020-07-10 08:45 | CR ---
Chest: Portable view of the chest was obtained. Comparison: Subsequent chest CT performed on the same day, chest x-ray of 01/25/19. Heart does not appear enlarged. Tortuous thoracic aorta is seen. Lungs are clear with no acute parenchymal change. Groundglass appearance seen on subsequent exam is not appreciated on this chest x-ray. Impression: 1. Nothing acute is seen. Diagnostic code #1 Study was dictated in MDT
--- NOTE | 2020-07-10 08:46 | CT ---
CT chest Technique: Multiple axial sections through the chest were obtained. Intravenous contrast was utilized. Study has been performed as a pulmonary angiogram protocol. Comparison: Abdominal structures of this exam are compared to prior CT abdomen and pelvis study of 11/02/19. Findings: Slightly hyperdense abnormality is noted within the left lobe of the liver. Liver otherwise shows fatty infiltration. Findings are felt compatible with focal area of fatty sparing. This finding is stable from prior CT exam. Other visualized abdominal structures show nothing acute. Slightly prominent left atrium is noted. Aorta shows no aneurysm. Mediastinum and hilar regions show no adenopathy. Pulmonary arteries are well-opacified. No filling defects are seen to indicate pulmonary embolism. Hazy groundglass appearance noted throughout both lungs. Mild areas of atelectasis is seen within both lung bases. Impression: 1. No findings of of pulmonary embolism. 2. Fatty infiltration within the liver with focal fatty sparing within the left lobe. This finding is stable from prior CT exam of 11/02/19. 3. Hazy groundglass appearance on both sides of the chest raising the possibility of pulmonary vascular congestion and interstitial edema. Mild bibasilar atelectasis is noted. Diagnostic code #3 Agree with preliminary report issued by [employer] ([facility] preliminary report dictated on 07/10/20, 12:58 AM Central Daylight Time) Study was dictated in MDT
== END 2020-07-10 00:55 | disposition home or self-care (01) ==
LOC: JD.ED 20:11
DX: S39.011A Strain of muscle, fascia and tendon of abdomen, initial encounter (principal); R07.89 Other chest pain; R07.81 Pleurodynia; I10 Essential (primary) hypertension; E03.9 Hypothyroidism, unspecified; Z88.8 Allergy status to other drugs, medicaments and biological substances; Z79.899 Other long term (current) drug therapy; X58.XXXA Exposure to other specified factors, initial encounter
CPT/HCPCS: 36415; 71045; 71275; 80053; 81001; 84484; 85025; 85379; 85610; 85730; 87086; 93005; 99285; J7030; J7050; Q9967; 93010; 99283

== ENCOUNTER 2025-06-14 10:30 | Day surgery (SDC) | payer MEDICARE, BC ==
[~2025-06-14 10:30] MED LIST: Sodium Chloride 0.9% 10 ML Syringe FLUSH PRN; Sodium Chloride 0.9% 10 ML Syringe FLUSH SCH
[2025-06-14] MEDS: Lactated Ringers 1,000 ML IV SCH (11:20)
[2025-06-14] MEDS ORDERED: Lidocaine 1% 4 ML ONE (13:21)
[2025-06-14] MEDS ORDERED: propofoL 500 MG/50 ML 50 ML ONE (13:21)
[2025-06-14 15:18] VITALS: BP 116/76; PULSE 52
== END 2025-06-14 14:52 | disposition home or self-care (01) ==
LOC: JD.SDS 10:30
PROVIDERS: ATTEND Surgery
DX: Z12.11 Encounter for screening for malignant neoplasm of colon (principal); D12.3 Benign neoplasm of transverse colon; K57.30 Diverticulosis of large intestine without perforation or abscess without bleeding; K64.8 Other hemorrhoids; I10 Essential (primary) hypertension; E03.9 Hypothyroidism, unspecified; E78.2 Mixed hyperlipidemia; E66.9 Obesity, unspecified; Z68.36 Body mass index [BMI] 36.0-36.9, adult; Z88.8 Allergy status to other drugs, medicaments and biological substances; Z79.890 Hormone replacement therapy; Z79.899 Other long term (current) drug therapy
CPT/HCPCS: 45380; J2003; J2704; J7120; 00811; 88305; 99100